=== PATIENT | female | born 1945 | race Caucasian/White ===

== ENCOUNTER 2018-09-25 06:22 | Inpatient (IN) | payer MEDICARE, SELFPAY ==
[2018-09-07 09:43] VITALS: BMI 25.9
[2018-09-25] VITALS (16 sets, daily range): BP systolic 88–136; BP diastolic 48–102; PULSE 76–99; RESP 10–20; TEMP 36.1–36.6; O2SAT 96–100; BMI 26.1
--- NOTE | 2018-09-25 | DI.RAD.S_ITS ---
PROCEDURE: XR LUMBAR SPINE 2-3V INDICATIONS: L2-3-4-5 TLIF TECHNIQUE: 2 intraoperative fluoroscopic views of the lumbar spine were acquired. COMPARISON: None. FINDINGS: Intraoperative fluoroscopic images of lumbar spine shows transpedicular fusion of L2-L5 vertebral bodies with intervertebral metallic spacer placement at L2-3 through L4-5 levels. IMPRESSION: Fluoroscopy guidance was provided intraoperatively for L2-L5 fusion. Dictated by: Erasmo Villeda M.D. on 09/25/2018 at 13:22 Approved by: Erasmo Villeda M.D. on 09/25/2018 at 13:28
[2018-09-25] MEDS: LACTATED RINGERS 1,000 ML 42 ML IV ×2 (07:00→10:10)
--- NOTE | 2018-09-25 07:25 | SUR.PREOP ---
PT REPORTS HAS MILD TREMOR IN RIGHT HAND, NOT OBSERVED BY RN. PT ALSO REPORTS HAS CHRONIC BURNING SENSTATION IN BOTH FEET.
[2018-09-25] MEDS: CLINDAMYCIN 900 MG/50 ML PIGGYBACK 50 MG IV ×2 (07:59→16:25)
--- NOTE | 2018-09-25 07:59 | PM.PREOP ---
Pre-operative Note Interval Note Pre-op Check: Yes History & Physical Reviewed by Physician, Yes Exam Performed and Yes History & Physical exam performed today by Physician Changes: No
--- NOTE | 2018-09-25 08:41 | SUR.OPER ---
Prone on spine table, head in foam head support, padded chest and pelvic supports, gel pad at knees, lower legs supported by pillows; nipples, genitalia and toes free of pressure, arms secured on foam padded arm boards at <90 degrees abduction. Tape over blanket at thigh secured to table.
[2018-09-25] MEDS: BUPIVACAINE 0.25% W/ EPI VIAL 50 ML INJ (09:03)
[2018-09-25] MEDS: BUPIVACAINE LIPOSOME 266 MG/20 ML VIAL INJ (09:03)
--- NOTE | 2018-09-25 09:04 | SUR.OPER ---
GLASSES IN LABELED CONTAINER TO PACU WITH PATIENT
--- NOTE | 2018-09-25 12:39 | PM.OP.1 ---
Operative Date/Time/Diagnoses Date of procedure: 09/25/18 Time of procedure: 08:39 Pre-op diagnosis: 1. L2-3, L3-4, L4-5 spondylolisthesis 2. Lumbar scoliosis 3. Lumbar spondylosis with radiculopathy Post-op diagnosis: same Procedure & Clinicians Procedure: 1. L2-3, L3-4, L4-5 Postero-lateral and posterior interbody fusion 2. L2-3, L3-4, L4-5 interbody cage placement. 3. L2-3, L3-4, L4-5 decompressive laminectomy with bilateral facetecomies 4. L2-3, L3-4, L4-5 Posterior segmental instrumentation 5. [place] of bone marrow from iliac crest 6. Utilization of microsurgical technique and operating microscope Same procedure as scheduled: Yes Indications: Patient has been having chronic back pain and worsening lumbar radiculopathy.Patient failed multiple conservative management with worsening pain weakness and numbness in her lower extremity. Patient has been having difficulty performing activity of daily living. After discussing risks benefits of treatment options, patient elected proceed with surgery. Surgeon: Arik Del Toro [employer] Vendor: Beth Zamudio Click Yes if Unassisted: No Anesthesia Type: General Operative Notes Closure Type: primary Specimen(s): none sent Implants & Drains: Globus Revolve screws, Rise cages Applied: catheter Estimated Blood Loss (mL): 200 Blood products transfused: none Procedure in detail: Patient was seen in the preoperative area. Risks and benefits of the surgery was discussed with the patient. Informed consent was obtained from the patient and placed in the chart. Surgical site was marked. Patient was taken to the operative room. General anesthesia was administered. Prophylactic antibiotic was given to the patient less than 30 min before the incision was made. Patient was placed into a prone position on the Tavo table. Patient's back was then prepped and draped in the sterile fashion. Time-out was performed at this time. Using AP and lateral C-arm imaging the interval between L2-3, L3-4, L4-5 was identified and marked on patient's back. A 3 inch incision 2 in from midline was made on the left side first. The fascia was incised in line with skin incision. Globus MARS retractors was placed inside the incision and docked onto the L2, L3, L4 lamina. Using microsurgical technique and operating microscope, a L2, L3, L4 laminectomy and L2-3, L3-4, L4-5 facetectomy was performed using a Kerrison rongeur. The disc space at L3-4, L4-5, L5-S1 was identified. And a total diskectomy was performed at L2-3, L3-4, L4-5 level. The endplates were decorticated using a rasp and shaver. The total diskectomy and decortication was performed at L2-3, L3-4, L4-5 level in order to to accomplish a L2-3, L3-4, L4-5 fusion. The local bone from the laminectomy and facetectomy was saved for local bone grafting. After the total diskectomy and decortication was completed, Globus viacell bone graft material was combined with local bone that was harvested earlier. At this time, a separate skin is incision was made over the iliac crest. A Jamshidi needle was inserted into the iliac crest through a separate skin incision. 5 cc of bone marrow aspiration was obtained through the separate skin incision using a Jamshidi needle from the iliac crest. The bone marrow aspiration was combined with local bone and the via cell bone grafting material. The bone grafting material was placed into the L2-3, L3-4, L4-5 interbody space along with three cages, one expandable cage at each level. The cages were expanded to their maximum height using the torque limiting screwdriver. At this time a mirror image incision was made on the right side. The fascia was incised in line with the skin incision. Globus MARS retractor was inserted and docked onto the L2-3, L3-4, L4-5 posterolateral gutter. Using the power drill, posterior-lateral decortication was performed at L2-3, L3-4, L4-5 level until bleeding cortical bone was identified. The remaining bone grafting material was placed into the L2-3, L3-4, L4-5 posterior lateral gutter he order to accomplish posterolateral fusion at the L2-3, L3-4, L4-5 levels. Using the double C-arm technique, pedicle screws were placed into the L2, L3, L4, L5 pedicles bilaterally. This was done by placing the Jamshidi needle into the pedicles, then placing the guidewires over the Jamshidi needle, and finally placing the cannulated screws over the guidewires bilaterally. After the pedicle screws were placed, 2 titanium rods was locked into the heads of the pedicle screws using locking caps and torque limiting screwdriver. Total 8 pedicles screws were placed. After all the hardware was placed, and confirmed with AP and lateral C-arm imaging, the wound was then irrigated with sterile normal saline and packed with Ray-Ismael gauze for 3 min to accomplish hemostasis. After the gauze was removed the deep fascia was closed with #1 Vicryl suture. The subcutaneous layer was closed with 2-0 Vicryl. The skin was closed with skin alis. Patient tolerated the procedure well. There were no complications. Complications: none Condition: stable Disposition: PACU Plan for aftercare: Admit to inpatient hospital
--- NOTE | 2018-09-25 13:22 | SUR.PHASEI ---
upon admit to PACU, IT WAS NOTED THAT PT HAS A SMALL HEMATOMA -SIZE OF NICKEL - ON INNER RIGHT WRIST, PRESSURE APPLIED, NO BLEEDING NOTED, WILL CONTINUE TO MONITOR AND OBSERVE, (CLOTH CUTTER STATES IT IS FROM NEURO MONITER NEEDLE)
--- NOTE | 2018-09-25 15:58 | PC.NURSE ---
Post-op: Late entry Arrived to room 205 at 1350. Quite drowsy but awakens easily to voice/touch. Denied much pain. Dressings to mid low back C/D/I. CMS+, PP+. Denied N/V, given ice chips & water. Vitals stable, BP's trending up from systolic in the high 80's to systolic in the 100's. Sats on 2L O2 in the mid 90's. Fischer to gravity, urine clear yellow. IVF per orders, site in L hand WNL. Oriented to room and call light, encouraged to call with needs. Fall precautions in place per nurse direction.
[2018-09-25] MEDS: SODIUM CHLORIDE 0.9% 1,000 ML 100 ML IV (16:07)
[2018-09-25] MEDS: HYDROMORPHONE 1 MG INJ 0.5 MG IV ×2 (16:21→19:02)
[2018-09-25] MEDS: hydrOXYzine pamoate 25 MG CAPSULE PO ×2 (17:54→22:19)
[2018-09-25] MEDS: OXYCODONE IR 5 MG TABLET 10 MG PO (22:17)
[2018-09-25] MEDS: DOCUSATE 100 MG CAPSULE PO (22:19)
[2018-09-25] MEDS: ATORVASTATIN 20 MG TABLET 40 MG PO (22:20)
[2018-09-25] MEDS: SENNOSIDES 8.6 MG TABLET 17.2 MG PO (22:20)
[2018-09-25] MEDS: LATANOPROST 0.005% OPHTH 2.5 ML 1 DROPS EYE-BOTH (22:20)
[2018-09-25] MEDS: ACETAMINOPHEN 325 MG TABLET 650 MG PO (22:21)
[2018-09-26] MEDS: CLINDAMYCIN 900 MG/50 ML PIGGYBACK 50 MG IV (01:00)
--- NOTE | 2018-09-26 01:17 | PC.NURSE ---
millie note Pt reports increased pain to left medial knee post op compared to pre-op. Pt says that the physician said that due to the procedure, this would be the case. Medicated several times with IV dilaudid and po vistaril. Pt tolerated full liquid diet. O2 decreased from 3 to 2L for sats of 100%.
[2018-09-26] MEDS: SODIUM CHLORIDE 0.9% 1,000 ML 100 ML IV (01:55)
--- NOTE | 2018-09-26 02:29 | PC.NURSE ---
Soda Room Operator Note: 0020: Awake, assisted to log-roll to lt side. Dressing to lower back 2/3 saturated with serosanguinous drainage. IV in place in lt wrist with NS infusing at 100cc/hr. Fischer catheter patent, urine is clear jethro.
[2018-09-26 05:40] VITALS: BP 107/58; PULSE 85; RESP 18; TEMP 36.4; O2SAT 100
[2018-09-26] MEDS: OXYCODONE IR 5 MG TABLET 10 MG PO ×4 (05:59→22:20)
[2018-09-26] MEDS: hydrOXYzine pamoate 25 MG CAPSULE PO ×3 (05:59→19:12)
[2018-09-26 06:43] LABS: Hematocrit 28.4 % (36-46); Hemoglobin 9.6 g/dL (12.0-16.0)
[2018-09-26 07:40] VITALS: BP 102/58; PULSE 88; RESP 16; TEMP 36.6; O2SAT 100
--- NOTE | 2018-09-26 07:45 | PM.PNPO.1 ---
Subjective Date Patient Seen: 09/26/18 Time Patient Seen: 07:45 Interval history: POD #1 status post L2-[address] Del Toro. Patient's pain is well controlled today with oxycodone and Vistaril. Her dressing last night was saturated with serosanguineous fluid, it was reinforced with ABDs. Patient has not been up with physical therapy. Exam Vital Signs (past 8 hours): - 09/26/18 05:40 Temperature 97.5 F L Pulse Rate 85 Respiratory Rate 18 Blood Pressure 107/58 L Pulse Oximetry 100 Oxygen Delivery Method Room Air Oxygen Flow Rate 2 Narrative Exam Narrative: Patient lying in bed in no acute distress. She is alert and oriented x3. Dressing on back is saturated with serosanguineous fluid. Nursing will change this morning. Calves are soft, compressible, nontender bilaterally. Sensation intact to light touch throughout bilateral lower extremities. She is able to actively dorsiflex plantar flex. Objective Labs Result Diagrams: 09/26/18 06:28 Labs: Laboratory Results - last 24 hr 09/26/18 06:28 Hgb 9.6 L Hct 28.4 L Assessment & Plan Post-op Postoperative Procedures Operation Date: 09/25/18 07:45 Actual Procedures Side Surgeon p L2-3,L3-4,L4-5 TLIF w/Posterior Instru. Not Applicable Arik Del Toro MD POD #1 status post L2-[address] Del Toro. Dressing change this morning per nursing. We will re-evaluate dressing status this afternoon. She will get up with physical therapy today. When she is more mobile MELIDA Fischer. Plan to discharge in next 1-2 days once mobilizing safely and pain adequately controlled.
[2018-09-26 09:05] VITALS: O2SAT 99
--- NOTE | 2018-09-26 09:30 | PT.IIE ---
Current Diagnoses Spondylolisthesis, lumbar region (09/25/18) Other spondylosis with radiculopathy, lumbar region (09/25/18) Spinal stenosis, lumbar region with neurogenic claudication (09/25/18) Surgery Performed Operation Date: 09/25/18 07:45 Actual Procedures p L2-3,L3-4,L4-5 TLIF w/Posterior Instru.(Not Applicable) - Arik Del Toro MD Surgical History (Last Updated 09/07/18 @ 10:21 by Paula Young RN) H/O hysterectomy with unilateral oophorectomy (Acute) Hx of appendectomy (Acute) Hx of laminectomy (Acute) Status post bilateral cataract extraction (Acute) Medical History (Last Updated 09/07/18 @ 10:21 by Paula Young RN) Anxiety (Acute) Arthritis (Acute) Asthma (Acute) BCC (basal cell carcinoma) (Acute) Burning pain (Acute) Glaucoma (Acute) H/O: hysterectomy (Acute) HTN (hypertension) (Acute) Hyperlipidemia (Acute) Mitral valve prolapse (Acute) TRACY on CPAP (Acute) Pneumonia (Acute) SOB (shortness of breath) on exertion (Acute) Scoliosis (Acute) TIA (transient ischemic attack) (Acute) Thin skin (Acute) Physical Therapy Inpatient Evaluation/Re-Eval M1 PT/OT-IP Prior Functional Status Start: 09/26/18 11:01 Freq: NEEDED Status: Active Protocol: Document 09/26/18 10:58 PJM (Rec: 09/26/18 11:15 PJM [id number]) Medical Review Prior Functional Status Medical History Reviewed Yes Diet/Fluid Consistency Regular Communication WNL Mobility and Gait Pt ambulated without a device. Activities of Daily Living and IADL's Pt independent with all self care, all IADLS and all the driving. Pt's has mild dementia and no longer drives. Prior Functional Level (Other details) Pt's ambulates without a device and can provide some assist if verbally cued. Social History Household Members spouse Living Arrangements House Number of Floors (Floors) One Floor Number of Stairs To Enter/Railing? 2 with railing Home Environment High Toilet Walk in Shower Home Equipment Front Wheel Walker Grab Bars Near Toilet Grab Bars In Shower Employment Status Retired Additional Social History Comment pt's son, who is RN, will stay with pt/ for 1-2 weeks , dtr also lives nearby M1 PT/OT-IP Prior Functional Status Start: 09/26/18 11:57 Freq: NEEDED Status: Active Protocol: Document 09/26/18 09:30 AB (Rec: 09/26/18 12:24 AB [id number]) Medical Review Prior Functional Status Medical History Reviewed Yes Diet/Fluid Consistency Regular Communication able to make needs known Mobility and Gait pt stated that she is independent with all mobilities and ambulation without AD but can only walk ~ 1/2 block at a time and has to sit Activities of Daily Living and IADL's Pt independent with all self care, all IADLS and all the driving. Pt's has mild dementia and no longer drives. Social History Household Members spouse Living Arrangements House Number of Floors (Floors) One Floor Number of Stairs To Enter/Railing? 2 steps to enter with bilateral rails Home Environment Standard Height Toilet Walk in Shower Home Equipment Front Wheel Walker Hand Held Shower Grab Bars Near Toilet Grab Bars In Shower Additional Social History Comment stated that her son will stay to assist her for ~ 1 week stated that spouse has cognitive issues/confusion but will be able to assist at home when directed M2 PT-IP Current Condition Start: 09/26/18 11:57 Freq: NEEDED Status: Active Protocol: Document 09/26/18 09:30 AB (Rec: 09/26/18 12:24 AB [id number]) Physical Therapy Current Condition Current Condition Evaluation Date 09/26/18 Treatment Diagnosis L2-5 posterior fusion and laminectomy Onset Date 09/25/18 Precautions Lumbar Precautions Log Roll No Twisting Limit Bending Lifting Restriction of 10 lbs Gait Belt above Incisional Area M3 PT-IP Subjective Start: 09/26/18 11:57 Freq: NEEDED Status: Active Protocol: Document 09/26/18 09:30 AB (Rec: 09/26/18 12:24 AB [id number]) Subjective Physical Therapy Visit Type Type Initial Evaluation Visit Start Time 09:30 Visit Stop Time 10:25 Total Visit Minutes 55 Number of LATEX DIPPER Visits 0 Physical Therapy Visit Comments Patient Comments pt agreeable to do PT Therapy Pain Assessment Pain When Pain Assessed At Rest Pain Present Pain Present Pain Reported Location Left Knee Intensity 8 Scale Used stated from her piriformis Description Shooting Lower Back Intensity 7 Pain Management Techniques Timing of Activity with Medications M4 PT-IP Mobility and Gait Start: 09/26/18 11:57 Freq: NEEDED Status: Active Protocol: Document 09/26/18 09:30 AB (Rec: 09/26/18 12:24 AB [id number]) PT-Bed Mobility Assessment Rolling Type of Rolling Log Rolling Level of Assist Minimal Assistance 1 Person Assistance Supine to Sit Supine to Sit Minimal Assistance 1 Person Assistance Bedrails Sit to Supine Sit to Supine Minimal Assistance 1 Person Assistance Bedrails PT-Transfer Assessment Sit to and From Stand Sit to and from Stand Moderate Assistance 1 Person Assistance Use of Upper Extremities Equipment Transfer Assistive Device Gait Belt Front Wheeled Walker Orthotic/Prosthetic Devices or Brace: No Transfers Transfer Destination Chair Transfer Technique pt ambulated to the chair using FWW Transfer Ability Level of Assist Minimal Assistance Moderate Assistance Use of Upper Extremities Comments Mobility Comments pt stated that she use her night stand to assist her with bed mobility. BP in supine 102/56 OK 87 O2 sat 99% pt sat on EOB and c/o dizziness and blurry vision but resolved after a few minutes of rest, BP: 118/69. pt completed sit to stand mod A and was able to stand for ~ 20 sec. BP in standin/ 69. pt ambulated to the chair using FWW. BP sitting on chair after ambulation: 116/53 Gait Assessment Gait Gait Assistance Required: Minimum Assistance Moderate Assistance 1 Person Assist Distance (Feet) 10 Able to Maintain Weight Bearing Status Yes During Gait Assistive Devices Assistive Device Gait Belt Front Wheeled Walker Orthotic/Prosthetic Devices or Brace: No Gait Deviations General Gait Pattern Antalgic Decreased Stride Length Decreased Feet Clearance Factors Limiting Gait Function Factors Limiting Gait Function Decreased Activity Tolerance Decreased Strength Pain Poor Balance Poor Safety Awareness Comments Gait Comments pt with slight L knee buckling requiring mod to max A to stabilize during standing and ambulation. PT-Balance Assessment Sitting Balance and Reactions Static Sitting Balance Ability Good Dynamic Sitting Balance Ability Good Standing Balance and Reactions Static Standing Balance Ability Fair Dynamic Standing Balance Ability Poor Device Used FWW M5 PT-IP Objective Assessments Start: 09/26/18 11:57 Freq: NEEDED Status: Active Protocol: Document 09/26/18 09:30 AB (Rec: 09/26/18 12:24 AB [id number]) Orientation Orientation/Cognition Level of Alertness Alert Orientation Name Age Birthday Month Date Year Day of Week Place Situation Gross Range of Motion Lower Extremity ROM Assessment Within Functional Limits Strength Lower Extremity Strength Assessment Bilaterally Impaired Comments Strength Comments BLE weakness L>R RLE: 4-/5 LLE: 3+/5 Coordination Assessment Gross Coordination Gross Coordination WNL M6 PT-IP Treatment Start: 09/26/18 11:57 Freq: NEEDED Status: Active Protocol: Document 09/26/18 09:30 AB (Rec: 09/26/18 12:24 AB [id number]) Physical Therapy Treatment Education Education Provided Precautions Weight Bearing Status Post-Op Packet Safety M7 PT-IP Assessment and Plan Start: 09/26/18 11:57 Freq: NEEDED Status: Active Protocol: Document 09/26/18 09:30 AB (Rec: 09/26/18 12:24 AB [id number]) PT Summary Assessment and Plan Potential Rehabilitation Potential Fair Status of Condition at Evaluation Evolving Summary Impairments Pain ROM Strength Balance Coordination Sensation Tone Cognition Bed Mobility Transfers Gait Activity Tolerance Assessment Summary pt requiring one person mod to max A with mobility with (+) L knee buckling during ambulation requiring mod/max A to stabilize. d/c plan depending on progress and assistance at home but at this time may require SNF. will continue to assess. Goals Bed Mobility Goal Standby Assistance Transfer Goal Standby Assistance Front Wheeled Walker Gait Goal Standby Assistance Front Wheel Walker Gait Distance 150 Other Goals up/down 2 steps with bilateral rails Days to Meet Goals 5 Frequency of Treatment Frequency Of Treatment Twice a Day Treatment Plan Physical Therapy Treatment Plan Bed Mobility Training Transfer Training Gait Training Therapeutic Exercise Balance Retraining Post Op Education Discharge Planning Hot or Cold Pack Neuromuscular Re-ed Coordination Retraining Manual Therapy Recommendations To Nursing Amount of Assist Needed 1 Person Assist Discharge Recommendations PT Discharge Recommendations Home with 20/06 Assist Home Health SNF Rehab
[2018-09-26] MEDS: HYDROMORPHONE 1 MG INJ 0.5 MG IV (09:57)
--- NOTE | 2018-09-26 10:58 | OT.IP.EVAL ---
Current Diagnoses Spondylolisthesis, lumbar region (09/25/18) Other spondylosis with radiculopathy, lumbar region (09/25/18) Spinal stenosis, lumbar region with neurogenic claudication (09/25/18) Surgery Performed Operation Date: 09/25/18 07:45 Actual Procedures p L2-3,L3-4,L4-5 TLIF w/Posterior Instru.(Not Applicable) - Arik Del Toro MD Past Medical History (Last Updated 09/07/18 @ 10:21 by Paula Young RN) Anxiety (Acute) Arthritis (Acute) Asthma (Acute) BCC (basal cell carcinoma) (Acute) Burning pain (Acute) Glaucoma (Acute) H/O: hysterectomy (Acute) HTN (hypertension) (Acute) Hyperlipidemia (Acute) Mitral valve prolapse (Acute) TRACY on CPAP (Acute) Pneumonia (Acute) SOB (shortness of breath) on exertion (Acute) Scoliosis (Acute) TIA (transient ischemic attack) (Acute) Thin skin (Acute) Surgical History (Last Updated 09/07/18 @ 10:21 by Paula Young RN) H/O hysterectomy with unilateral oophorectomy (Acute) Hx of appendectomy (Acute) Hx of laminectomy (Acute) Status post bilateral cataract extraction (Acute) Occupational Therapy Inpatient Evaluation/Re-Eval M1 PT/OT-IP Prior Functional Status Start: 09/26/18 11:01 Freq: NEEDED Status: Active Protocol: Document 09/26/18 10:58 PJM (Rec: 09/26/18 11:15 PJM [id number]) Medical Review Prior Functional Status Medical History Reviewed Yes Diet/Fluid Consistency Regular Communication WNL Mobility and Gait Pt ambulated without a device. Activities of Daily Living and IADL's Pt independent with all self care, all IADLS and all the driving. Pt's has mild dementia and no longer drives. Prior Functional Level (Other details) Pt's ambulates without a device and can provide some assist if verbally cued. Social History Household Members spouse Living Arrangements House Number of Floors (Floors) One Floor Number of Stairs To Enter/Railing? 2 with railing Home Environment High Toilet Walk in Shower Home Equipment Front Wheel Walker Grab Bars Near Toilet Grab Bars In Shower Employment Status Retired Additional Social History Comment pt's son, who is RN, will stay with pt/ for 1-2 weeks , dtr also lives nearby M2 OT-IP Current Condition Start: 09/26/18 11:01 Freq: Status: Active Protocol: Document 09/26/18 10:58 PJM (Rec: 09/26/18 11:15 PJM [id number]) Occupational Therapy Current Condition Current Condition Evaluation Date 09/26/18 Treatment Diagnosis decreased self care, functional mobility s/p L3-5 Lumbar fusion Post Operative Precautions Lumbar Precautions Log Roll No Twisting Limit Bending Lifting Restriction of 10 lbs Gait Belt above Incisional Area M3 OT- IP Subjective and Pain Start: 09/26/18 11:01 Freq: Status: Active Protocol: Document 09/26/18 10:58 PJM (Rec: 09/26/18 11:15 PJM [id number]) OT- Subjective Occupational Therapy Visit Type Type Initial Evaluation Visit Start Time 10:25 Visit Stop Time 10:58 Occupational Therapy Visit Comments Patient/Caregiver Goals to go home, resume independence with less back pain OT Pain Assessment Pain When Pain Assessed After Treatment Pain Present Pain Present Pain Reported Location Lower Back Intensity 7 Description Aching Acute Pain Behaviors Facial Grimacing Guarding Management Techniques Re-positioning Timing of Activity with Medications M4 OT- IP ADL's Start: 09/26/18 11:01 Freq: Status: Active Protocol: Document 09/26/18 10:58 PJM (Rec: 09/26/18 11:15 PJM [id number]) OT [id number] General Evaluation Self-Feeding Ability Independent OT ADL-Grooming General Evaluation Grooming Ability Standby Assistance Areas Needing Assistance Retrieving/Set-up of Grooming Items Face Washing Comments OT Grooming Comments in bed or chair OT ADL-Oral Care General Eval Oral Care Ability Standby Assistance Areas of Assistance Retrieving/Set-Up of Items Devices Oral Care Devices Toothbrush Comments Oral Care Comments in bed or chair OT ADL-Dressing General Eval Upper Body Dressing Ability Standby Assistance Lower Body Dressing Ability Maximum Assistance Areas Needing Assistance Socks Assistive Devices Dressing Assistive Devices Long Handled Shoe Horn Career Development Coordinator/Teacher Sock Aid Comments OT Dressing Comments Began education re: adaptive equipt for LB dressing. Pt has documentation writer and can borrow long shoe horn from . She will have son order hard sock aid on line. OT ADL-Toileting General Evaluation Toileting Ability Maximum Assistance Areas Needing Assistance Empty Catheter or Colostomy Comments OT Toileting Comments to be assessed; pt still has rincon OT ADL-Bathing Comments OT Bathing Comments to be assessed as activity toelrance improves M5 OT- IP IADL's Start: 09/26/18 11:01 Freq: Status: Active Protocol: Document 09/26/18 10:58 PJM (Rec: 09/26/18 11:15 PJM [id number]) OT-Instrumental Activities of Daily Living Deficits IADL Deficits Identified Deficits Home Safety Awareness Awareness of Need for Assistance at Home Good Awareness Ability to Problem Solve Emergency Able to Problem Solve Situations Medication Management Medication Management No Deficits Identified Money Management Money Management No Deficits Identified Meal Preparation Meal Preparation Caregiver Provides Assist Meal Preparation Comments family to assist until pt able Senior Java Programmer Analyst Senior Java Programmer Analyst Caregiver Provides Assist Senior Java Programmer Analyst Comments family to assist until pt able Driving Driving Caregiver Provides Assist Driving Comments family to assist until pt able M6 OT- IP Functional Cognition Start: 09/26/18 11:01 Freq: Status: Active Protocol: Document 09/26/18 10:58 PJM (Rec: 09/26/18 11:15 PJ [id number]) Cognitive Factors Limiting Selfcare Function Cognitive Ability Level of Alertness Alert Patient Orientation Name Age Birthday Month Date Year Day of Week Place Situation Attention Span Ability Capable of Focused Attention Capable of Sustained Attention Ability to Follow Commands Able to Follow One Step Commands Memory Description No Deficits Noted Safety Awareness No Deficits Noted Problem Solving Ability No deficits Noted Cognitive Comments Cognitive Assessment Comments Cognition appears WNL. OT- Vision and Hearing OT- Hearing Assessment OT- Hearing Assessment WFL OT- Vision Assessment Vision History Glaucoma Visual Acuity WFL Vision Assessment Comments Wears glasses for distance, not for reading M7 OT- IP Mobility and Balance Start: 09/26/18 11:01 Freq: Status: Active Protocol: Document 09/26/18 10:58 PJM (Rec: 09/26/18 11:15 [facility] [id number]) OT- Bed Mobility Assessment Rolling Type of Rolling Roll to Right Level of Assistance Contact Guard Assistance 1 Person Assistance Sit to Supine Sit to Supine Assist Contact Guard Assistance 1 Person Assistance Scooting Scooting to Edge of Bed Standby Assistance 1 Person Assistance OT-Transfer Assessment Sit to and From Stand Sit to and from Stand Contact Guard Assistance 1 Person Assistance Transfers Transfer Ability Contact Guard Assistance 1 Person Assistance Technique Transfer Destination Bed Transfer Technique Stand Step Pivot Devices Transfer Assistive Devices Gait Belt Front Wheeled Walker OT- Gait Assessment Gait Gait Assistance Required: Contact Guard Assist Distance (Feet) 12 Assistive Devices Assistive Device Gait Belt Front Wheeled Walker Comments Gait Ability Comments mildly unsteady OT- Balance Assessment Sitting Balance and Reactions Static Sitting Balance Ability Good Standing Balance and Reactions Static Standing Balance Ability Good M8 OT- IP Objective Assessments Start: 09/26/18 11:01 Freq: Status: Active Protocol: Document 09/26/18 10:58 PJM (Rec: 09/26/18 11:15 PJM [id number]) OT Gross Range of Motion Upper Extremity Range of Motion Assessment Within Functional Limits OT Strength Upper Extremity Strength Assessment Within Functional Limits Hand Customer Success Director Strength Hand Dominance Right OT- Coordination Assessment Comments Coordination Comments BUE WFL OT-Muscle Tone Assessment Muscle Tone WNL Yes OT Sensation Assessment Comments Summary Comments BUE WNL Edema Edema Absent M9 OT- IP Assessment and Plan Start: 09/26/18 11:01 Freq: Status: Active Protocol: Document 09/26/18 10:58 PJM (Rec: 09/26/18 11:15 PJM [id number]) OT Summary Assessment and Plan Potential Rehabilitation Potential Good Analytic Complexity at Evaluation Low Summary OT Impairments Pain Balance Functional Mobility Grooming Dressing Toileting Bathing Toilet Transfers Shower Transfers Assessment Summary Low complexity OT assessment completed with emphasis on self are skills within lumbar spine precautions. Pt currently has performance deficits in all functional mobility/transfers, standing grooming, lower body dressing, bathing, toileting. Began education re: precautions, chair selection, body mechanics, lower body dressing with equipt. Anticipate pt will be able to d/c home with 24 hr family assist when medically stable and clears P. T. Goals Grooming Goal Independent Dressing Goal Independent Long Handled Shoe Horn Career Development Coordinator/Teacher Sock Aid Toileting Goal Independent Bathing Goal Standby Assistance Toilet Transfer Goal Independent Shower Transfer Goal Standby Assistance Patient/Caregiver Education Goal Demonstrate Post-Op Precautions Demonstrate Energy Conservation and Pacing Caregiver Independent Assisting Patient OT-Other Goals Grooming to be done standing with good body mechanics. Days to Meet Goals 3 Frequency of Treatment Frequency Of Treatment Once a Day Treatment Plan OT Treatment Plan ADL Training Functional Mobility Patient/Family Education Discharge Planning Discharge Recommendations OT Discharge Recommendations Home with 24/7 Assist Home Equipment Needs shower seat?, pt to obtain hard sock aid and long bath sponge
[2018-09-26] MEDS: DOCUSATE 100 MG CAPSULE PO ×2 (11:09→19:11)
[2018-09-26 11:20] VITALS: BP 106/53; PULSE 85; RESP 14; TEMP 36.7; O2SAT 100
--- NOTE | 2018-09-26 11:23 | CM.DANOTE ---
Addendum entered by Talia Gautam LPN 09/26/18 12:06: Introduced self and role. Pt is found in bed, resting. Says she worked with PT and OT for first time this morning. Pt is a 72 year old female who admitted yesterday for a planned spinal surgery/TLIF. Surgeon: Dr. Katey Rodríguez: ROHIT DAVIS She identifies her plan at this time as home with family support. P: DCP team will follow as POC unfolds to assist prn with d/c issues and options. Original Note: Discharge Planning/Care Management DCP: assessment: case received, EMR reviewed and went to room to meet with pt. CM Discharge Assessment Start: 09/26/18 11:22 Freq: Status: Active Protocol: Document 09/26/18 11:22 ITV (Rec: 09/26/18 11:23 ITV [id number]) Discharge Planning Assessment Advance Directives? Yes Advance Directives on File Yes History Provided By Patient Family Member Prior Living Arrangements House Household Members spouse Whiteboard Updated in Patient Room with Yes name and ext. # of Med Care Manager Review Status In Process Next Review Type Continued Stay Review Pre-Anesthesia Assessment Start: 09/07/18 09:43 Freq: Status: Active Protocol: Document 09/07/18 09:43 CAB (Rec: 09/07/18 10:35 CAB [id number]) Pre-Anesthesia Assessment Patient Also Known As Hartley (AKA) Patient Information Reviewed Via Phone Assessment Assessment Completed With Patient Lab Results BMP/CMP CBC EKG Comment Labs and EKG obtained as inpt at [facility] Primary Care Provider Calvin Vergara Seen Specialist in Last 12 Months Yes Specialist Seen Irrigator Emergency Orthopedist Other Comment [facility] admit 08/14/18 for TIA, PCP f/u visit [facility] Primary Language Swedish Superintendent Factory Required No Height 172.72 cm Weight 77.564 kg Body Mass Index (BMI) 25.9 Hearing Ability Normal Visual Assist Glasses Dentition Type Teeth, Natural Present Barriers to Learning None Comment LOVELOCK only with seasonal allergies, causing swelling in ears Hx Anesthesia Reactions Yes: Nausea/vomiting w/ hysterectomy 80's, none since Hx Family Anesthesia Reaction No Hx Malignant Hyperthermia No Hx Blood Transfusions Yes: 1979 Hx Blood Transfusion Reaction No Anesthesia Review Requested No Sap Integration Architect No alcohol intake current Alcohol Intake Frequency Other: Occasional Smoking Status Never smoker Substance Use Type does not use Pain Present Pain Reported Musculoskeletal Symptoms Deformity Difficulty Walking Muscle Weakness Radiating Pain into Limb History of Falling (Recent or History of No ) Patient is completely paralyzed or No completely immobile Mental Status Oriented to own ability Is patient on oxygen? No Does patient have CONTRERAS/SOB Yes Hx Sleep Apnea Yes CPAP/BIPAP use prescribed and used routinely Will Bring CPAP/BIPAP DOS Yes Currently Taking a Beta Saji Yes: Metoprolol Can You Climb a Flight of Stairs Without No SOB Hx Chest Pain Yes: On occasion with exertion /upstairs, improves w/rest x 20yrs Hx SOB Yes Hx Syncope or Dizziness No Anti-Coagulant Therapy Yes: 81mg aspirin daily-pt will check with PCP if to hold prior Has a Irrigator No Cardiac Testing Yes: ECHO 08/15/18, Carotid US 08/14/18, Stress 09/18/18 Hx Pacemaker/ICD No Pacemaker Rep Required? No Cardiac Clearance Received Not Applicable Comment [facility] to chart Diet Type At Home Regular dysphagia No Genitourinary Symptoms Change in Urinary Stream Difficulty Urinating Urinary Catheter Present No Hx Urinary Self Catheterization No Diabetes No HgbA1C 5.7 Date 08/14/18 Patient No Lactating No Hx Drug Resistant Organism No Presence of External or Internal Medical Yes Devices Comment bilateral eye lens, CPAP, left knee brace Have you traveled outside the [facility] States in the last 30 days? Comment Traveled to [place], [facility] July 25, 2018 Marital Status Lives With spouse Prior Living Arrangements House Number of Floors (Floors) One Floor Number of Stairs To Enter/Railing? 2 steps, railing Support System Child/Children Spouse Does the Patient Have Assistance After Yes Surgery Patient Discharge Plan Description Return Home Comment Pt not advised on length of stay. Children will stay w/pt to assist w/care Feels Safe in Current Environment Yes Been Physically Hurt or Threatened By a No Person in Current Environment Do you have thoughts of harming yourself None or others? Are you currently considering suicide? No Do you have a plan to hurt yourself or No Plan others? Do You Have Any Spiritual Beliefs That No May Affect Your HC Choices? Do You Have Any Cultural Practices That No May Affect Your HC Choices? Spiritual Referral None Who Can We Speak to About Patient's Care Family, friends Identifying Code for Release of Patient Declines to issue Information Health Care Proxy/Next of Kin Cesario () Health Care Proxy Emergency Contact Name Cesario () Emergency Contact Advance Directives? Yes Advance Directives on File Yes Requested Patient Bring Advanced No Directives DOS Power of Wire Walker Yes Power of Wire Walker Name Cesario () Power of Wire Walker PAC Instructions Bring CPAP/BIPAP Durable medical equipment Medications to take/avoid Nasal antibiotic No ETOH/petroleum product on skin DOS NPO Post-op transportation Pre-surgical wash Sturdy shoes/comfortable clothes Do not bring valuables and remove jewelry Discharge Planning/Care Management CM Discharge Assessment Start: 09/26/18 11:22 Freq: Status: Active Protocol: Document 09/26/18 11:22 ITV (Rec: 09/26/18 11:23 ITV [email or web address]) Discharge Planning Assessment Advance Directives? Yes Advance Directives on File Yes History Provided By Patient Family Member Prior Living Arrangements House Household Members spouse Whiteboard Updated in Patient Room with Yes name and ext. # of Med Care Manager Review Status In Process Next Review Type Continued Stay Review Pre-Anesthesia Assessment Start: 09/07/18 09:43 Freq: Status: Active Protocol: Document 09/07/18 09:43 CAB (Rec: 09/07/18 10:35 CAB [id number]) Pre-Anesthesia Assessment Patient Also Known As Hartley (AKA) Patient Information Reviewed Via Phone Assessment Assessment Completed With Patient Lab Results BMP/CMP CBC EKG Comment Labs and EKG obtained as inpt at [facility] Primary Care Provider Calvin Vergara Seen Specialist in Last 12 Months Yes Specialist Seen Irrigator Emergency Orthopedist Other Comment [facility] admit 08/14/18 for TIA, PCP f/u [facility] Primary Language Swedish Superintendent Factory Required No Height 172.72 cm Weight 77.564 kg Body Mass Index (BMI) 25.9 Hearing Ability Normal Visual Assist Glasses Dentition Type Teeth, Natural Present Barriers to Learning None Comment LOVELOCK only with seasonal allergies, causing swelling in ears Hx Anesthesia Reactions Yes: Nausea/vomiting w/ hysterectomy 80's, none since Hx Family Anesthesia Reaction No Hx Malignant Hyperthermia No Hx Blood Transfusions Yes: 1979 Hx Blood Transfusion Reaction No Anesthesia Review Requested No Sap Integration Architect No alcohol intake current Alcohol Intake Frequency Other: Occasional Smoking Status Never smoker Substance Use Type does not use Pain Present Pain Reported Musculoskeletal Symptoms Deformity Difficulty Walking Muscle Weakness Radiating Pain into Limb History of Falling (Recent or History of No ) Patient is completely paralyzed or No completely immobile Mental Status Oriented to own ability Is patient on oxygen? No Does patient have CONTRERAS/SOB Yes Hx Sleep Apnea Yes CPAP/BIPAP use prescribed and used routinely Will Bring CPAP/BIPAP DOS Yes Currently Taking a Beta Saji Yes: Metoprolol Can You Climb a Flight of Stairs Without No SOB Hx Chest Pain Yes: On occasion with exertion /upstairs, improves w/rest x 20yrs Hx SOB Yes Hx Syncope or Dizziness No Anti-Coagulant Therapy Yes: 81mg aspirin daily-pt will check with PCP if to hold prior Has a Irrigator No Cardiac Testing Yes: ECHO 08/15/18, Carotid US 08/14/18, Stress 09/18/18 Hx Pacemaker/ICD No Pacemaker Rep Required? No Cardiac Clearance Received Not Applicable Comment Records to [facility] recs to be scanned to chart Diet Type At Home Regular dysphagia No Genitourinary Symptoms Change in Urinary Stream Difficulty Urinating Urinary Catheter Present No Hx Urinary Self Catheterization No Diabetes No HgbA1C 5.7 Date 08/14/18 Patient No Lactating No Hx Drug Resistant Organism No Presence of External or Internal Medical Yes Devices Comment bilateral eye lens, CPAP, left knee brace Have you traveled outside the [facility] in the last 30 days? Comment Traveled to [place], [facility] July 25, 2018 Marital Status Lives With spouse Prior Living Arrangements House Number of Floors (Floors) One Floor Number of Stairs To Enter/Railing? 2 steps, railing Support System Child/Children Spouse Does the Patient Have Assistance After Yes Surgery Patient Discharge Plan Description Return Home Comment Pt not advised on length of stay. Children will stay w/pt to assist w/care Feels Safe in Current Environment Yes Been Physically Hurt or Threatened By a No Person in Current Environment Do you have thoughts of harming yourself None or others? Are you currently considering suicide? No Do you have a plan to hurt yourself or No Plan others? Do You Have Any Spiritual Beliefs That No May Affect Your HC Choices? Do You Have Any Cultural Practices That No May Affect Your HC Choices? Spiritual Referral None Who Can We Speak to About Patient's Care Family, friends Identifying Code for Release of Patient Declines to issue Information Health Care Proxy/Next of Kin Cesario () Health Care Proxy Emergency Contact Name Cesario () Emergency Contact Advance Directives? Yes Advance Directives on File Yes Requested Patient Bring Advanced No Directives DOS Power of Wire Walker Yes Power of Wire Walker Name Cesario () Power of Wire Walker PAC Instructions Bring CPAP/BIPAP Durable medical equipment Medications to take/avoid Nasal antibiotic No ETOH/petroleum product on skin DOS NPO Post-op transportation Pre-surgical wash Sturdy shoes/comfortable clothes Do not bring valuables and remove jewelry
[2018-09-26] MEDS: ACETAMINOPHEN 325 MG TABLET 650 MG PO (12:26)
--- NOTE | 2018-09-26 14:30 | PT.IPTN ---
Current Diagnoses Spondylolisthesis, lumbar region (09/25/18) Other spondylosis with radiculopathy, lumbar region (09/25/18) Spinal stenosis, lumbar region with neurogenic claudication (09/25/18) Surgery Performed Operation Date: 09/25/18 07:45 Actual Procedures p L2-3,L3-4,L4-5 TLIF w/Posterior Instru.(Not Applicable) - Arik Del Toro MD Physical Therapy Treatment Note M2 PT-IP Current Condition Start: 09/26/18 11:57 Freq: NEEDED Status: Active Protocol: Document 09/26/18 09:30 AB (Rec: 09/26/18 12:24 AB [id number]) Physical Therapy Current Condition Current Condition Evaluation Date 09/26/18 Treatment Diagnosis L2-5 posterior fusion and laminectomy Onset Date 09/25/18 Precautions Lumbar Precautions Log Roll No Twisting Limit Bending Lifting Restriction of 10 lbs Gait Belt above Incisional Area M3 PT-IP Subjective Start: 09/26/18 11:57 Freq: NEEDED Status: Active Protocol: Document 09/26/18 14:30 AB (Rec: 09/26/18 16:11 AB [id number]) Subjective Physical Therapy Visit Type Type Treatment Note Visit Start Time 14:30 Visit Stop Time 15:10 Total Visit Minutes 40 Number of SHIPPING HAND Visits 0 Physical Therapy Visit Comments Patient Comments pt agreeable to do PT Therapy Pain Assessment Pain When Pain Assessed At Rest Pain Present Pain Present Pain Reported Location Lower Back Intensity 8 Scale Used Numeric (1 - 10) Pain Management Techniques Re-positioning Timing of Activity with Medications M4 PT-IP Mobility and Gait Start: 09/26/18 11:57 Freq: NEEDED Status: Active Protocol: Document 09/26/18 14:30 AB (Rec: 09/26/18 16:11 AB [id number]) PT-Bed Mobility Assessment Rolling Type of Rolling Log Rolling Level of Assist Standby Assistance Supine to Sit Supine to Sit Standby Assistance Bedrails Sit to Supine Sit to Supine Standby Assistance Head of Bed Elevated Scooting Scooting to Edge of Bed Standby Assistance PT-Transfer Assessment Sit to and From Stand Sit to and from Stand Contact Guard Assistance Minimal Assistance 1 Person Assistance Use of Upper Extremities Comments Mobility Comments pt initially requiring min A for sit to stand. educated on techniques and pt completed sit <>stand x 5 reps and was able to complete CGA without cues towards end of repetition . completed log roll bed mobility supine<>sit SBA with cues for techniques. Gait Assessment Gait Gait Assistance Required: Contact Guard Assist Minimum Assistance Distance (Feet) 30 Able to Maintain Weight Bearing Status Yes During Gait Assistive Devices Assistive Device Gait Belt Front Wheeled Walker Orthotic/Prosthetic Devices or Brace: No Gait Deviations General Gait Pattern Decreased Stride Length Decreased Feet Clearance Factors Limiting Gait Function Factors Limiting Gait Function Decreased Activity Tolerance Decreased Strength Limited Range of Motion Pain Poor Balance Poor Safety Awareness Comments Gait Comments BP sitting on EOB 117/55 without c/o dizziness; after walking BP decreased to 97/43. pt rested and agreed to walk again and BP checked: 113/60. BP in supine after tx: 124/ 60. pt completed ambulation 30 ft x2 using FWW CGA to min A and cues to activate quad muscles . (+) bilateral knee buckling requiring mod A to recover. pt stated that her RLE is longer than LLE. will use her shoes with lift next tx session to increase stability. opted not to do stairs today due to pt's decrease BP after ambulation and (+) knee buckling. pt educated on exercises. M5 PT-IP Objective Assessments Start: 09/26/18 11:57 Freq: NEEDED Status: Active Protocol: Document 09/26/18 09:30 AB (Rec: 09/26/18 12:24 AB [id number]) Orientation Orientation/Cognition Level of Alertness Alert Orientation Name Age Birthday Month Date Year Day of Week Place Situation Gross Range of Motion Lower Extremity ROM Assessment Within Functional Limits Strength Lower Extremity Strength Assessment Bilaterally Impaired Comments Strength Comments BLE weakness L>R RLE: 4-/5 LLE: 3+/5 Coordination Assessment Gross Coordination Gross Coordination WNL M6 PT-IP Treatment Start: 09/26/18 11:57 Freq: NEEDED Status: Active Protocol: Document 09/26/18 14:30 AB (Rec: 09/26/18 16:11 AB [id number]) Physical Therapy Treatment Exercises Exercises Seated Knee Flexion/Extension Education Education Provided Precautions Weight Bearing Status Post-Op Packet Safety M7 PT-IP Assessment and Plan Start: 09/26/18 11:57 Freq: NEEDED Status: Active Protocol: Document 09/26/18 14:30 AB (Rec: 09/26/18 16:11 AB [id number]) PT Summary Assessment and Plan Potential Rehabilitation Potential Good Summary Impairments Pain ROM Strength Balance Coordination Sensation Tone Bed Mobility Transfers Gait Activity Tolerance Progress Towards Goals Slow Progress due to Medical Issues Slow Progress due to Activity Tolerance Assessment Summary pt progressing slowly but continues to require min A with mobility. informed pt regarding caregiver training and stated that her son will come in at around 11 am tomorrow. d/c plans depending if son will be able to assist pt safely and if pt will be able to complete long distance ambulation and stair climbing safely. will continue to assess. Goals Bed Mobility Goal Standby Assistance Transfer Goal Standby Assistance Front Wheeled Walker Gait Goal Standby Assistance Front Wheel Walker Gait Distance 150 Other Goals up/down 2 steps with bilateral rails Days to Meet Goals 5 Frequency of Treatment Frequency Of Treatment Twice a Day Treatment Plan Physical Therapy Treatment Plan Bed Mobility Training Transfer Training Gait Training Therapeutic Exercise Balance Retraining Post Op Education Discharge Planning Hot or Cold Pack Neuromuscular Re-ed Coordination Retraining Manual Therapy Recommendations To Nursing Amount of Assist Needed 1 Person Assist Discharge Recommendations PT Discharge Recommendations Home with 20/06 Assist Home Health SNF Rehab
--- NOTE | 2018-09-26 15:49 | PC.NURSE ---
Late entry: Back dressing replaced this morning per instruction from ortho REYNALDO Burciaga. Two incisions parallel to each other were well-approximated and without active bleeding or drainage noted. Covered with 4X4's, abd pads and medipore- dressing has remained C/D/I since it was changed. Rincon dc'd at 1230 per patient request (PT/OT felt it was appropriate from a mobility standpoint). Voided 300 ml since rincon dc'd and she feels like she emptied her bladder.
[2018-09-26 16:45] VITALS: BP 114/58; PULSE 90; RESP 18; TEMP 37; O2SAT 97
[2018-09-26] MEDS: ATORVASTATIN 20 MG TABLET 40 MG PO (19:10)
[2018-09-26] MEDS: SENNOSIDES 8.6 MG TABLET 17.2 MG PO (19:11)
[2018-09-26] MEDS: LATANOPROST 0.005% OPHTH 2.5 ML 1 DROPS EYE-BOTH (19:11)
[2018-09-26 21:59] VITALS: BP 112/61; PULSE 91; RESP 16; TEMP 37.2; O2SAT 97
[2018-09-27] VITALS (7 sets, daily range): BP systolic 100–121; BP diastolic 48–58; PULSE 84–98; RESP 16–18; TEMP 36.5–37.6; O2SAT 92–98
--- NOTE | 2018-09-27 00:17 | PC.NURSE ---
Addendum entered by Brenda Webster R.N. 09/27/18 06:30: pt woke up at 0540 with 9/10 pain and c/o aches and pains all over. I administered 5mg oxycodone and 25mg Vistaril. Patient is stating that she wants to stay for another night, when asked why she says that she doesn't think she can do it. Patient unable to find the words to elaborate. When prompted she will agree with the statement that she would like to work with PT and OT some more to feel more confident. Patient also states that she doesn't have a lot of help at home (lives with who has dementia). Original Note: NOC pt resting calmly on back. Denying pain/nausea/dizziness. O2 sat was 88% RA, asked pt to deep breath; she took 5-10 deep breaths (intermittent coughing) and was able to sat 96%. Patient using eye-shades and ear plugs. SCD's on bilaterally.
[2018-09-27] MEDS: hydrOXYzine pamoate 25 MG CAPSULE PO ×2 (05:48→20:40)
[2018-09-27] MEDS: OXYCODONE IR 5 MG TABLET 10 MG PO ×2 (05:49→09:03)
--- NOTE | 2018-09-27 08:10 | P.PN_ITS ---
Subjective Date Patient Seen: 09/27/18 Time Patient Seen: 07:30 Interval history: POD #2 status post L2-[address] Del Toro. Patient reports I had a bad night last night. She reports that she was in severe pain all over. Her pain has now resolved with vistrail 25mg and oxycodone 10mg. She reports mobilizing with PT yesterday. During PT she experienced a low BP of 97/43 after walking. She reports being able to walk to bathroom with assistance yesterday. Her is home with dementia, however her son will be home to assist her upon discharge. She reports that her pain is well managed at this time. She denies any fever, chills, SOB, chest pain, nausea or vomiting. Exam Vital Signs (past 8 hours): - 09/27/18 00:18 09/27/18 03:39 Temperature 99.6 F 98.5 F Pulse Rate 84 95 H Respiratory Rate 16 16 Blood Pressure 116/56 L 105/58 L Pulse Oximetry 92 94 Oxygen Delivery Method Nasal Cannula Oxygen Flow Rate 0 Narrative Exam Narrative: Patient is sitting upright in chair in no acute distress. She is AOx3. Radial and dorsalis pedis pulses 2+ and symmetric. Sensation to light touch intact in LE bilaterally. Lumbar dressing CDI. Adeuqate strength in dorsiflexion, plantarflexion and sane nurse bilaterally. L calf mildly tender to palpation in comparison to R, otherwise calfs are soft and compressible. Objective Labs Result Diagrams: 09/26/18 06:28 Assessment & Plan Post-op Postoperative Procedures Operation Date: 09/25/18 07:45 Actual Procedures Side Surgeon p L2-3,L3-4,L4-5 TLIF w/Posterior Instru. Not Applicable Arik Del Toro MD Postoperative day: 2 Postoperative plan: routine post-op care Postoperative plan narrative: Continue mobilizing, sitting in chair and ambulating with PT. Continue pain management. Likely to be discharged home later today once cleared by PT.
[2018-09-27] MEDS: DOCUSATE 100 MG CAPSULE PO ×2 (09:01→20:31)
[2018-09-27] MEDS: METOPROLOL ER 25 MG TABLET PO (09:01)
--- NOTE | 2018-09-27 10:28 | PC.NURSE ---
Addendum entered by Ernestina Rocha R.N. 09/27/18 14:06: pt continues to be drowsy, working with PT reports pain is 6/10 medicated with tylenol. dressing to back folding up and coming off, placed island dressing, incisions to bilateral sides of spine are well approximated with sutures, no drainage and no s/sx of infection. Original Note: Addendum entered by Ernestina Rocha R.N. 09/27/18 13:23: pt continues to be drowsy, no c/o pain at this time. 1 SBA with FWW to bathroom, reported to student RN that when she goes she feels it stops and goes mid stream. This RN assess pt also reports that she had some hesitancy with urination prior to surgery, denies burning or frequency. sitting in chair call light within reach and chair alarm on. Original Note: Day shift. Pt is a&o able to make needs known, drowsy states she feels out of it from the pain medication, rates pain 7/10 was medicated and rates it 3/10, is sitting up in chair at bedside, this RN elevated legs and warm blanket give. Denies chest pain, SOB and H/A. Call light within reach and bed alarm for safety.
--- NOTE | 2018-09-27 10:48 | OT.IP.TRT ---
Current Diagnoses Spondylolisthesis, lumbar region (09/25/18) Other spondylosis with radiculopathy, lumbar region (09/25/18) Spinal stenosis, lumbar region with neurogenic claudication (09/25/18) Surgery Performed Operation Date: 09/25/18 07:45 Actual Procedures p L2-3,L3-4,L4-5 TLIF w/Posterior Instru.(Not Applicable) - Arik Del Toro MD Occupational Therapy Treatment Note M2 OT-IP Current Condition Start: 09/26/18 11:01 Freq: Status: Active Protocol: Document 09/26/18 10:58 PJM (Rec: 09/26/18 11:15 PJM [id number]) Occupational Therapy Current Condition Current Condition Evaluation Date 09/26/18 Treatment Diagnosis decreased self care, functional mobility s/p L3-5 Lumbar fusion Post Operative Precautions Lumbar Precautions Log Roll No Twisting Limit Bending Lifting Restriction of 10 lbs Gait Belt above Incisional Area M3 OT- IP Subjective and Pain Start: 09/26/18 11:01 Freq: Status: Active Protocol: Document 09/27/18 10:48 PJM (Rec: 09/27/18 13:37 PJM [id number]) OT- Subjective Occupational Therapy Visit Type Type Treatment Note Visit Start Time 10:16 Visit Stop Time 10:48 Total Visit Minutes 32 Notes Pt up in recliner when therapist arrived. Occupational Therapy Visit Comments Patient Comments How long will I be handicapped by all this pain? I had a really bad night. Patient/Caregiver Goals to have less pain and go home OT Pain Assessment Pain When Pain Assessed After Treatment Pain Present Pain Present Pain Reported Location Lower Back Intensity 7 Description Aching Acute M4 OT- IP ADL's Start: 09/26/18 11:01 Freq: Status: Active Protocol: Document 09/27/18 10:48 PJM (Rec: 09/27/18 13:37 PJM [id number]) OT BVZ-Bina-Nsprtln General Evaluation Self-Feeding Ability Independent OT ADL-Grooming General Evaluation Grooming Ability Standby Assistance Areas Needing Assistance Retrieving/Set-up of Grooming Items Face Washing Comments OT Grooming Comments pt standing at sink with FWW; provided education re: body mechanics; needs verbal cues to stand more upright OT ADL-Oral Care General Eval Oral Care Ability Standby Assistance Areas of Assistance Brushing Teeth Retrieving/Set-Up of Items Devices Oral Care Devices Toothbrush Comments Oral Care Comments pt stood total of 4 min at sink OT ADL-Dressing General Eval Lower Body Dressing Ability Minimal Assistance Areas Needing Assistance Underpants/Brief Socks Assistive Devices Dressing Assistive Devices [employer] Architect Sock Aid Comments OT Dressing Comments Provided education and practice re: use of asbestos surveyor and sock aid for lower body dressing with mod verbal cues require to problem solve unfamiliar techniques and equipt. Pt plans to order sock aid online with assist from son. OT ADL-Toileting Comments OT Toileting Comments pt declined this session OT ADL-Bathing Comments OT Bathing Comments to be assessed as activity tolerance improves; long bath sponge provided; pt plans to stand to shower and states M7 OT- IP Mobility and Balance Start: 09/26/18 11:01 Freq: Status: Active Protocol: Document 09/27/18 10:48 PJM (Rec: 09/27/18 13:37 PJ [id number]) OT-Transfer Assessment Sit to and From Stand Sit to and from Stand Contact Guard Assistance 1 Person Assistance Transfers Transfer Ability Contact Guard Assistance 1 Person Assistance Technique Transfer Destination Chair Transfer Technique Stand Step Pivot Devices Transfer Assistive Devices Gait Belt Front Wheeled Walker Comments Mobility Comments Pt needs verbal cues for hand placement and to align self in front of chair before sitting . OT- Gait Assessment Gait Gait Assistance Required: Contact Guard Assist Distance (Feet) 15 Assistive Devices Assistive Device Gait Belt Front Wheeled Walker OT- Balance Assessment Sitting Balance and Reactions Static Sitting Balance Ability Good Dynamic Sitting Balance Ability Good Standing Balance and Reactions Static Standing Balance Ability Good Dynamic Standing Balance Ability Good Comments Other Balance Tests/Deviations/Treatment during grooming at sink and : standing for clothing M9 OT- IP Assessment and Plan Start: 09/26/18 11:01 Freq: Status: Active Protocol: Document 09/27/18 10:48 PJM (Rec: 09/27/18 13:37 PJ [id number]) OT Summary Assessment and Plan Summary OT Impairments Pain Functional Mobility Dressing Toileting Bathing Toilet Transfers Shower Transfers Progress Towards Goals Slow Progress due to Pain Slow Progress due to Medical Issues Assessment Summary Pt still c/o of high pain levels today, but appears mildly over sedated with slowed speed of processing and some difficulty problem solving noted. Pt's pain level limiting activity tolerance. Pt would benefit from and additional day of practice with functional mobility and self care skills prior to return home with , who has dementia, and son (RN) who is staying with them to assist for 1-2 weeks. Goals Grooming Goal Independent Dressing Goal Independent Long Handled [place] [employer] Architect Sock Aid Toileting Goal Independent Bathing Goal Standby Assistance Toilet Transfer Goal Independent Shower Transfer Goal Standby Assistance Patient/Caregiver Education Goal Demonstrate Post-Op Precautions Demonstrate Energy Conservation and Pacing Caregiver Independent Assisting Patient OT-Other Goals Grooming to be done standing with good body mechanics. Days to Meet Goals 2 Frequency of Treatment Frequency Of Treatment Once a Day Treatment Plan OT Treatment Plan ADL Training Functional Mobility Patient/Family Education Discharge Planning Discharge Recommendations OT Discharge Recommendations Home with 20/06 Assist Home Equipment Needs ? shower seat; pt to obtain hard sock aid; long bath sponge provided
--- NOTE | 2018-09-27 12:07 | PT.IPTN ---
Current Diagnoses Spondylolisthesis, lumbar region (09/25/18) Other spondylosis with radiculopathy, lumbar region (09/25/18) Spinal stenosis, lumbar region with neurogenic claudication (09/25/18) Surgery Performed Operation Date: 09/25/18 07:45 Actual Procedures p L2-3,L3-4,L4-5 TLIF w/Posterior Instru.(Not Applicable) - Arik Del Toro MD Physical Therapy Treatment Note M2 PT-IP Current Condition Start: 09/26/18 11:57 Freq: NEEDED Status: Active Protocol: Document 09/26/18 09:30 AB (Rec: 09/26/18 12:24 AB [id number]) Physical Therapy Current Condition Current Condition Evaluation Date 09/26/18 Treatment Diagnosis L2-5 posterior fusion and laminectomy Onset Date 09/25/18 Precautions Lumbar Precautions Log Roll No Twisting Limit Bending Lifting Restriction of 10 lbs Gait Belt above Incisional Area M3 PT-IP Subjective Start: 09/26/18 11:57 Freq: NEEDED Status: Active Protocol: Document 09/27/18 12:06 GGD (Rec: 09/27/18 12:07 GGD [id number]) Subjective Physical Therapy Visit Type Type Patient Refusal Notes Pt refused states that she is to tired and been up to the bathroom and lot today. Recommendations To Nursing Amount of Assist Needed 1 Person Assist Discharge Recommendations PT Discharge Recommendations Home with 20/06 Assist Home Health SNF Rehab
[2018-09-27] MEDS: ACETAMINOPHEN 325 MG TABLET 650 MG PO (13:51)
--- NOTE | 2018-09-27 14:05 | PT.IPTN ---
Current Diagnoses Spondylolisthesis, lumbar region (09/25/18) Other spondylosis with radiculopathy, lumbar region (09/25/18) Spinal stenosis, lumbar region with neurogenic claudication (09/25/18) Surgery Performed Operation Date: 09/25/18 07:45 Actual Procedures p L2-3,L3-4,L4-5 TLIF w/Posterior Instru.(Not Applicable) - Arik Del Toro MD Physical Therapy Treatment Note M2 PT-IP Current Condition Start: 09/26/18 11:57 Freq: NEEDED Status: Active Protocol: Document 09/26/18 09:30 AB (Rec: 09/26/18 12:24 AB [id number]) Physical Therapy Current Condition Current Condition Evaluation Date 09/26/18 Treatment Diagnosis L2-5 posterior fusion and laminectomy Onset Date 09/25/18 Precautions Lumbar Precautions Log Roll No Twisting Limit Bending Lifting Restriction of 10 lbs Gait Belt above Incisional Area M3 PT-IP Subjective Start: 09/26/18 11:57 Freq: NEEDED Status: Active Protocol: Document 09/27/18 14:05 GGD (Rec: 09/27/18 15:39 GGD [id number]) Subjective Physical Therapy Visit Type Type Treatment Note Visit Start Time 13:35 Visit Stop Time 14:05 Total Visit Minutes 30 Number of MOLD SANDER Visits 1 Physical Therapy Visit Comments Patient Comments Pt states she willing to get up. Therapy Pain Assessment Pain When Pain Assessed At Rest Pain Present Pain Present Pain Reported Location Lower Back Intensity 6 Scale Used Numeric (1 - 10) M4 PT-IP Mobility and Gait Start: 09/26/18 11:57 Freq: NEEDED Status: Active Protocol: Document 09/27/18 14:05 GGD (Rec: 09/27/18 15:39 GGD [id number]) PT-Transfer Assessment Sit to and From Stand Sit to and from Stand Moderate Assistance 1 Person Assistance Use of Upper Extremities Equipment Transfer Assistive Device Gait Belt Front Wheeled Walker Orthotic/Prosthetic Devices or Brace: No Transfers Transfer Destination Chair Transfer Ability Level of Assist Moderate Assistance Use of Upper Extremities Comments Mobility Comments Pt need mod cues and assist for sit to stand. Gait Assessment Gait Gait Assistance Required: Minimum Assistance Distance (Feet) 40 Able to Maintain Weight Bearing Status Yes During Gait Assistive Devices Assistive Device Gait Belt Front Wheeled Walker Orthotic/Prosthetic Devices or Brace: No Gait Deviations General Gait Pattern Decreased Stride Length Decreased Feet Clearance Factors Limiting Gait Function Factors Limiting Gait Function Decreased Activity Tolerance Decreased Strength Limited Range of Motion Pain Poor Balance Poor Safety Awareness Comments Gait Comments Pt had knee buckling with gait . She had mild dizziness M5 PT-IP Objective Assessments Start: 09/26/18 11:57 Freq: NEEDED Status: Active Protocol: Document 09/26/18 09:30 AB (Rec: 09/26/18 12:24 AB [id number]) Orientation Orientation/Cognition Level of Alertness Alert Orientation Name Age Birthday Month Date Year Day of Week Place Situation Gross Range of Motion Lower Extremity ROM Assessment Within Functional Limits Strength Lower Extremity Strength Assessment Bilaterally Impaired Comments Strength Comments BLE weakness L>R RLE: 4-/5 LLE: 3+/5 Coordination Assessment Gross Coordination Gross Coordination WNL M6 PT-IP Treatment Start: 09/26/18 11:57 Freq: NEEDED Status: Active Protocol: Document 09/27/18 14:05 GGD (Rec: 09/27/18 15:39 GGD [id number]) Physical Therapy Treatment Education Education Provided Precautions Safety M7 PT-IP Assessment and Plan Start: 09/26/18 11:57 Freq: NEEDED Status: Active Protocol: Document 09/27/18 14:05 GGD (Rec: 09/27/18 15:39 GGD [id number]) PT Summary Assessment and Plan Summary Assessment Summary Pt need mod cues for mobility. She need mod A for sit to stand. She had difficulity following cues. She did have knee buckling with gait and unsteadiness. She had heavy use of UE on FWW with gait. Frequency of Treatment Frequency Of Treatment Twice a Day Treatment Plan Physical Therapy Treatment Plan Bed Mobility Training Transfer Training Gait Training Therapeutic Exercise Balance Retraining Post Op Education Discharge Planning Hot or Cold Pack Neuromuscular Re-ed Coordination Retraining Manual Therapy Recommendations To Nursing Amount of Assist Needed 1 Person Assist Discharge Recommendations PT Discharge Recommendations Home with 20/06 Assist Home Health SNF Rehab
[2018-09-27] MEDS: ATORVASTATIN 20 MG TABLET 40 MG PO (20:30)
[2018-09-27] MEDS: SENNOSIDES 8.6 MG TABLET 17.2 MG PO (20:31)
[2018-09-27] MEDS: LATANOPROST 0.005% OPHTH 2.5 ML 1 DROPS EYE-BOTH (20:31)
[2018-09-27] MEDS: ONDANSETRON 4 MG/2 ML INJ IV (21:55)
--- NOTE | 2018-09-27 22:48 | PC.NURSE ---
Roxanne shift note: Patient awake and alert, pleasant and cooperative. Reports feeling more awake and alert in comparison to this morning. Has declined pain medications this shift, no c/o back pain, however reports discomfort to abdomen. Described abdominal discomfort as intermittent and sharp, passed flatus and reported relief. Encouraged ambulation and mobility. Medicated with Zofran IV x1 for mild nausea, with adequate relief. Ambulating in hallway with 1PA, steady gait noted. Call light within reach, BA active.
[2018-09-28 00:05] VITALS: BP 110/52; PULSE 80; RESP 16; TEMP 37.7; O2SAT 97
--- NOTE | 2018-09-28 01:36 | PC.NURSE ---
Addendum entered by Rashaad Gautam R.N. 09/28/18 06:56: 0530: Awake, walking in awan with walker, gait belt, and sba. Steady on her feet. Original Note: Hospice Care Transitions Coordinator Note: 0015: Awake, up to bathroom with walker and 1 person assist. Slow and steady on her feet. Dressing to lower back is cdi. Alert, oriented X3. Saline lock in place in lt forearm.
[2018-09-28 03:00] VITALS: BP 112/48; PULSE 91; RESP 16; TEMP 37.4; O2SAT 97
[2018-09-28] MEDS: ACETAMINOPHEN 325 MG TABLET 650 MG PO ×2 (04:18→10:00)
[2018-09-28] MEDS: hydrOXYzine pamoate 25 MG CAPSULE PO (04:18)
[2018-09-28 08:00] VITALS: BP 113/56; PULSE 78; RESP 16; TEMP 36.6; O2SAT 96
[2018-09-28] MEDS: DOCUSATE 100 MG CAPSULE PO (08:45)
[2018-09-28] MEDS: METOPROLOL ER 25 MG TABLET PO (08:45)
--- NOTE | 2018-09-28 11:28 | CM.DPC ---
DCP Cont: Met with patient in room. Discussed home discharge plan. Patient is wanting to go home, has with dementia, but also has son available. Mentioned home health, such as occupational and physical therapy, along with bath-aide. Patient not objecting to this. Have been in contact with Siomara, in physical therapy. She has voiced some concerns of patient safety and understanding safety at home as well. Stated that she will be meeting with son today for caregiver training. Skilled may be an option as well. P: DCP to follow closely. Collaborate with physical therapy to note safety needs, and if home health would be an option for patient. Gladys Agarwal RN/Bid Clerk
--- NOTE | 2018-09-28 11:40 | PT.IPTN ---
Current Diagnoses Spondylolisthesis, lumbar region (09/25/18) Other spondylosis with radiculopathy, lumbar region (09/25/18) Spinal stenosis, lumbar region with neurogenic claudication (09/25/18) Surgery Performed Operation Date: 09/25/18 07:45 Actual Procedures p L2-3,L3-4,L4-5 TLIF w/Posterior Instru.(Not Applicable) - Arik Del Toro MD Physical Therapy Treatment Note M2 PT-IP Current Condition Start: 09/26/18 11:57 Freq: NEEDED Status: Active Protocol: Document 09/26/18 09:30 AB (Rec: 09/26/18 12:24 AB [id number]) Physical Therapy Current Condition Current Condition Evaluation Date 09/26/18 Treatment Diagnosis L2-5 posterior fusion and laminectomy Onset Date 09/25/18 Precautions Lumbar Precautions Log Roll No Twisting Limit Bending Lifting Restriction of 10 lbs Gait Belt above Incisional Area M3 PT-IP Subjective Start: 09/26/18 11:57 Freq: NEEDED Status: Active Protocol: Document 09/28/18 11:25 GGD (Rec: 09/28/18 12:16 GGD [email or web address]) Subjective Physical Therapy Visit Type Type Treatment Note Visit Start Time 11:00 Visit Stop Time 11:25 Total Visit Minutes 25 Number of COMPENSATION CONSULTING MANAGER Visits 2 Physical Therapy Visit Comments Patient Comments Pt states she is feeling better. Therapy Pain Assessment Pain When Pain Assessed At Rest Pain Present Pain Present Pain Reported Location Lower Back Intensity 2 Scale Used Numeric (1 - 10) M4 PT-IP Mobility and Gait Start: 09/26/18 11:57 Freq: NEEDED Status: Active Protocol: Document 09/28/18 11:25 GGD (Rec: 09/28/18 12:16 GGD [email or web address]) PT-Transfer Assessment Sit to and From Stand Sit to and from Stand Contact Guard Assistance Use of Upper Extremities Equipment Transfer Assistive Device Gait Belt Front Wheeled Walker Orthotic/Prosthetic Devices or Brace: No Transfers Transfer Destination Chair Transfer Ability Level of Assist Contact Guard Assistance Use of Upper Extremities Comments Mobility Comments Pt need min cues for sit to stand. Gait Assessment Gait Gait Assistance Required: Standby Assistance Distance (Feet) 50 Able to Maintain Weight Bearing Status Yes During Gait Assistive Devices Assistive Device Gait Belt Front Wheeled Walker Orthotic/Prosthetic Devices or Brace: Yes Gait Deviations General Gait Pattern Decreased Stride Length Decreased Feet Clearance Factors Limiting Gait Function Factors Limiting Gait Function Decreased Activity Tolerance Decreased Strength Limited Range of Motion Poor Balance Poor Safety Awareness Comments Gait Comments no knee buckling with gait. Stair Climbing Assessment Evaluation Level of Assist On Stairs Contact Guard Assistance Devices Stair Climbing Assistive Devices Left Railing Right Railing Technique/Endurance Stair Climbing Direction Ascend and Descend Stair Climbing Technique Step to Step Number of Steps Climbed 3 Query Text: Stair Climbing Set # Repetitions (reps) 1 Comments Stair Climbing Comments Knee buckled one time with stair mobility. Son was instructed on safe assist for stair. M5 PT-IP Objective Assessments Start: 09/26/18 11:57 Freq: NEEDED Status: Active Protocol: Document 09/26/18 09:30 AB (Rec: 09/26/18 12:24 AB [id number]) Orientation Orientation/Cognition Level of Alertness Alert Orientation Name Age Birthday Month Date Year Day of Week Place Situation Gross Range of Motion Lower Extremity ROM Assessment Within Functional Limits Strength Lower Extremity Strength Assessment Bilaterally Impaired Comments Strength Comments BLE weakness L>R RLE: 4-/5 LLE: 3+/5 Coordination Assessment Gross Coordination Gross Coordination WNL M6 PT-IP Treatment Start: 09/26/18 11:57 Freq: NEEDED Status: Active Protocol: Document 09/28/18 11:25 GGD (Rec: 09/28/18 12:16 GGD [email or web address]) Physical Therapy Treatment Education Education Provided Precautions Safety M7 PT-IP Assessment and Plan Start: 09/26/18 11:57 Freq: NEEDED Status: Active Protocol: Document 09/28/18 11:25 GGD (Rec: 09/28/18 12:16 GGD [email or web address]) PT Summary Assessment and Plan Summary Assessment Summary Pt needed less cues and assist for mobility. She had improved stablity with gait. Her son was able to assist with cues and mobility. Frequency of Treatment Frequency Of Treatment Twice a Day Recommendations To Nursing Amount of Assist Needed 1 Person Assist Discharge Recommendations PT Discharge Recommendations Home with Assistance
--- NOTE | 2018-09-28 11:56 | OT.IP.TRT ---
Current Diagnoses Spondylolisthesis, lumbar region (09/25/18) Other spondylosis with radiculopathy, lumbar region (09/25/18) Spinal stenosis, lumbar region with neurogenic claudication (09/25/18) Surgery Performed Operation Date: 09/25/18 07:45 Actual Procedures p L2-3,L3-4,L4-5 TLIF w/Posterior Instru.(Not Applicable) - Arik Del Toro MD Occupational Therapy Treatment Note M3 OT- IP Subjective and Pain Start: 09/26/18 11:01 Freq: Status: Active Protocol: Document 09/28/18 11:56 PJM (Rec: 09/28/18 15:59 PJM [email or web address]) OT- Subjective Occupational Therapy Visit Type Type Treatment Note Visit Start Time 11:30 Visit Stop Time 11:56 Total Visit Minutes 26 Notes Pt's and son here for education. Note that per , has dementia with short term memory deficits. Occupational Therapy Visit Comments Patient Comments I feel much better today. I slept better. Patient/Caregiver Goals to go home today OT Pain Assessment Pain When Pain Assessed After Treatment Pain Present Pain Present Pain Reported Location Lower Back Intensity 3 Description Aching Acute Pain Behaviors Guarding Management Techniques Distraction Re-positioning Timing of Activity with Medications M4 OT- IP ADL's Start: 09/26/18 11:01 Freq: Status: Active Protocol: Document 09/28/18 11:56 PJM (Rec: 09/28/18 15:59 PJM [email or web address]) OT ADL-Grooming Comments OT Grooming Comments pt declines grooming at sink this session; provided further education re: body mechanics OT ADL-Dressing General Eval Upper Body Dressing Ability Independent Lower Body Dressing Ability Minimal Assistance Areas Needing Assistance Pull-Over Shirt Underpants/Brief Pants/Shorts Socks Shoes Assistive Devices Dressing Assistive Devices Long Handled Shoe Horn System Validation Engineer Sock Aid Comments OT Dressing Comments Provided further education/ practice re: lower body dressing with adaptive equipment. Pt needs min verbal cues for sock aid use and can provide assist with tying shoes. Pt needed min assist to don shoes with shoe horn due to tight fit. Pt will wear slip on slippers at home. OT ADL-Toileting General Evaluation Toileting Ability Standby Assistance Areas Needing Assistance Manage Clothing Perform Perineal Hygiene OT ADL-Bathing Bathing Type Bathing Type Shower General Evaluation Bathing Ability Standby Assistance Areas Needing Assistance Retrieving/Setting Up Items Devices Bathing Equipment Long Handled Sponge or Cotton Dispatcher Held Shower Sprayer Grab Bars Comments OT Bathing Comments Provided education re: shower seat options, resources and son will assist pt with obtaining one and long bath sponge. M6 OT- IP Functional Cognition Start: 09/26/18 11:01 Freq: Status: Active Protocol: Document 09/28/18 11:56 PJM (Rec: 09/28/18 15:59 [facility] [email or web address]) Cognitive Factors Limiting Selfcare Function Cognitive Ability Level of Alertness Alert Patient Orientation Name Age Birthday Month Date Year Day of Week Place Situation Attention Span Ability Capable of Focused Attention Capable of Sustained Attention Ability to Follow Commands Able to Follow One Step Commands Problem Solving Ability Needs Assist to Identify Solutions Cognitive Comments Cognitive Assessment Comments Pt more alert today with improved speed of processing and problem solving re: equipment use. M7 OT- IP Mobility and Balance Start: 09/26/18 11:01 Freq: Status: Active Protocol: Document 09/28/18 11:56 PJM (Rec: 09/28/18 15:59 [facility] [email or web address]) OT-Transfer Assessment Sit to and From Stand Sit to and from Stand Standby Assistance Transfers Transfer Ability Standby Assistance Technique Transfer Destination Chair Comments Mobility Comments min verbal cues re: hand placement on chair OT- Gait Assessment Comments Gait Ability Comments see P.T. notes OT- Balance Assessment Sitting Balance and Reactions Static Sitting Balance Ability Good Dynamic Sitting Balance Ability Good Standing Balance and Reactions Static Standing Balance Ability Good Dynamic Standing Balance Ability Good M9 OT- IP Assessment and Plan Start: 09/26/18 11:01 Freq: Status: Active Protocol: Document 09/28/18 11:56 PJM (Rec: 09/28/18 15:59 [facility] [email or web address]) OT Summary Assessment and Plan Potential Rehabilitation Potential Good Summary Progress Towards Goals Safe For Discharge Goals Met Assessment Summary All OT education completed with pt/family today regarding adapted ADLS within lumbar spine precautions. Pt verbalizes and demonstrates understanding. Capable son will be staying with pt/ for next 2 weeks. Pt declines HH services at present. Pt plans to d/c home with 24 hr family assist today. Frequency of Treatment Frequency Of Treatment Discharge Discharge Recommendations OT Discharge Recommendations Home with 24/7 Assist Home Equipment Needs shower seat, sock aid long bath sponge (son to obtain equipment for pt)
--- NOTE | 2018-09-28 12:03 | PM.DS.1 ---
History of Present Illness Date Patient Seen: 09/28/18 Time Patient Seen: 07:20 Chief complaint: [id number] Narrative: Patient has been having chronic back pain and worsening lumbar radiculopathy.Patient failed multiple conservative management with worsening pain weakness and numbness in her lower extremity. Patient has been having difficulty performing activity of daily living. After discussing risks benefits of treatment options, patient elected proceed with surgery. Discharge Providers Date of admission: 09/25/18 06:22 Primary care physician: Calvin Vergara MD Consults: 09/25/18 13:56 Consult to Occupational Therapy Evaluate & Treat Comment: Physician Instructions: Evaluate and treat Consult to Physical Therapy Evaluate & Treat Comment: Physician Instructions: Evaluate and Treat Discharge provider: Rosario Cardozo PA-C Discharge Date: 09/28/18 Summary Discharge Diagnosis: 1. L2-3, L3-4, L4-5 spondylolisthesis 2. Lumbar scoliosis 3. Lumbar spondylosis with radiculopathy Hospital Course: Patient was admitted status post L2-3, L3-4, L4-5 Postero-lateral and posterior interbody fusion, L2-3, L3-4, L4-5 interbody cage placement, L2-3, L3-4, L4-5 decompressive laminectomy with bilateral facetecomies, L2-3, L3-4, L4-5 Posterior segmental instrumentation, [place] of bone marrow from iliac crest and Utilization of microsurgical technique and operating microscope by Dr. Del Toro. Patient tolerated procedure well with no major complications. Patient transferred to the floor and seen by PT who recommended she be discharged home with outpatient PT. Her pain was well controlled with 10mg oxycodone, 25mg Vistaril and 650mg of Tylenol. Patient is stable and ready to be discharged on 09/28/18. Patient and son is home to assist her. Calfs are soft and compressible bilaterally. Lumbar cover site dressing on. Exam Vital Signs (past 8 hours): - 09/28/18 08:00 Temperature 97.9 F Pulse Rate 78 Respiratory Rate 16 Blood Pressure 113/56 L Pulse Oximetry 96 Oxygen Delivery Method Room Air Oxygen Flow Rate 0 Narrative Exam Narrative: Patient is examined in chair. Patient and son is sitting bedside. Patient is AOx3. Patient is in no acute distress. Radial and dorsalis pedis pulses 2+ and symmetric. Lumbar dressing CDI. L knee brace noted. Adequate muscle strength in dorsiflexion, plantarflexion and pancake professional bilaterally. Sensation to light touch intact in LE bilaterally. L calf is mildly tender in comparison to the R, otherwise calfs are soft and compressible. Patient is sitting upright comfortably in chair in no acute distress. She reports that her pain is well managed at this time. She reports she feels much better in comparison to yesterday. Patient reports that she would like to go home today. Her and son is home to assist her upon discharge. She denies any fever, chills, nausea, vomiting, SOB or chest pain. Objective Labs Result Diagrams: 09/26/18 06:28 Discharge Plan Discharge Plan Patient Disposition: Home Discharge Med Rec/Prescriptions Prescriptions: New acetaminophen 325 mg Tablet 650 mg PO Q6HR PRN (Reason: Pain, Mild (1-3)) Qty: 0 RF: 0 docusate sodium 100 mg Capsule 100 mg PO BID Qty: 0 RF: 0 oxycodone 5 mg Tablet 10 mg PO Q4H PRN (Reason: Pain, Severe (7-10)) Qty: 40 RF: 0 hydroxyzine pamoate 25 mg Capsule 25 mg PO Q4HR PRN (Reason: Nausea And Vomiting) Qty: 50 RF: 1 Continue latanoprost 0.005 % Drops 1 drp EYE-BOTH BEDTIME RF: 0 atorvastatin 40 mg Tablet 40 mg PO BEDTIME RF: 0 ibuprofen 200 mg Tablet 400 mg PO BEDTIME RF: 0 metoprolol succinate 25 mg Tablet Extended Release 24 Hr 25 mg PO DAILY RF: 0 azelastine 137 mcg (0.1 %) Aerosol,[place] 1 spray INTRANASAL PRN PRN (Reason: seasonal allergies) RF: 0 fluticasone [Flovent HFA] 110 mcg/actuation Hfa Aerosol Inhaler 1 puff INHALATION BID PRN (Reason: Seasonal allergies) RF: 0 Discontinued aspirin 81 mg Tablet,Chewable 81 mg PO DAILY RF: 0 Follow up/Referrals: Arik Del Toro MD [Physician] - As previously scheduled (Follow up at [facility] [place] on 10/02/18 at scheduled appointment.) Provider Discharge Instructions Diet: Diet as Tolerated Activity: Limit bending, lifting and twisting. Continue to use walker/cane until cleared by PT. Cold/Heat Therapy: Ice compress as needed. Skin/Wound/Dressing Care Report to your healthcare provider any signs of infection, such as:: chills, fever, night sweats, increased pain and unusual drainage Dressing: Keep clean and dry. Visit Report/Discharge Packet Instructions: DI for Transforaminal Lumbar Interbody Fusion Visit Report Forms: Stroke Signs & Symptoms Discharge Data Primary Care Provider: Calvin Vergara Attending Provider: Arik Del Toro Admit Date/Time: 09/25/18 06:22 Discharges patient from system. Discharge Date/Time: 09/28/18 13:15
--- NOTE | 2018-09-28 12:08 | P.DS_ITS ---
History of Present Illness Date Patient Seen: 09/28/18 Time Patient Seen: 07:20 Chief complaint: [id number] Narrative: Patient has been having chronic back pain and worsening lumbar radiculopathy.Patient failed multiple conservative management with worsening pain weakness and numbness in her lower extremity. Patient has been having difficulty performing activity of daily living. After discussing risks benefits of treatment options, patient elected proceed with surgery. Discharge Providers Date of admission: 09/25/18 06:22 Primary care physician: Calvin Vergara MD Consults: 09/25/18 13:56 Consult to Occupational Therapy Evaluate & Treat Comment: Physician Instructions: Evaluate and treat Consult to Physical Therapy Evaluate & Treat Comment: Physician Instructions: Evaluate and Treat Discharge provider: Rosario Cardozo PA-C Discharge Date: 09/28/18 Summary Discharge Diagnosis: 1. L2-3, L3-4, L4-5 spondylolisthesis 2. Lumbar scoliosis 3. Lumbar spondylosis with radiculopathy Hospital Course: Patient was admitted status post L2-3, L3-4, L4-5 Postero- lateral and posterior interbody fusion, L2-3, L3-4, L4-5 interbody cage placement, L2-3, L3-4, L4-5 decompressive laminectomy with bilateral facetecomies, L2-3, L3-4, L4-5 Posterior segmental instrumentation, [place] of bone marrow from iliac crest and Utilization of microsurgical technique and operating microscope by Dr. Del Toro. Patient tolerated procedure well with no major complications. Patient transferred to the floor and seen by PT who recommended she be discharged home with outpatient PT. Her pain was well controlled with 10mg oxycodone, 25mg Vistaril and 650mg of Tylenol. Patient is stable and ready to be discharged on 09/28/18. Patient and son is home to assist her. Calfs are soft and compressible bilaterally. Lumbar cover site dressing on. Exam Vital Signs (past 8 hours): - 09/28/18 08:00 Temperature 97.9 F Pulse Rate 78 Respiratory Rate 16 Blood Pressure 113/56 L Pulse Oximetry 96 Oxygen Delivery Method Room Air Oxygen Flow Rate 0 Narrative Exam Narrative: Patient is examined in chair. Patient and son is sitting bedside. Patient is AOx3. Patient is in no acute distress. Radial and dorsalis pedis pulses 2+ and symmetric. Lumbar dressing CDI. L knee brace noted. Adequate muscle strength in dorsiflexion, plantarflexion and car wash supervisor bilaterally. Sensation to light touch intact in LE bilaterally. L calf is mildly tender in comparison to the R, otherwise calfs are soft and compressible. Patient is sitting upright comfortably in chair in no acute distress. She reports that her pain is well managed at this time. She reports she feels much better in comparison to yesterday. Patient reports that she would like to go home today. Her and son is home to assist her upon discharge. She denies any fever, chills, nausea, vomiting, SOB or chest pain. Objective Labs Result Diagrams: 09/26/18 06:28 Discharge Plan Discharge Plan Patient Disposition: Home Discharge Med Rec/Prescriptions Prescriptions: New acetaminophen 325 mg Tablet 650 mg PO Q6HR PRN (Reason: Pain, Mild (1-3)) Qty: 0 RF: 0 docusate sodium 100 mg Capsule 100 mg PO BID Qty: 0 RF: 0 oxycodone 5 mg Tablet 10 mg PO Q4H PRN (Reason: Pain, Severe (7-10)) Qty: 40 RF: 0 hydroxyzine pamoate 25 mg Capsule 25 mg PO Q4HR PRN (Reason: Nausea And Vomiting) Qty: 50 RF: 1 Continue latanoprost 0.005 % Drops 1 drp EYE-BOTH BEDTIME RF: 0 atorvastatin 40 mg Tablet 40 mg PO BEDTIME RF: 0 ibuprofen 200 mg Tablet 400 mg PO BEDTIME RF: 0 metoprolol succinate 25 mg Tablet Extended Release 24 Hr 25 mg PO DAILY RF: 0 azelastine 137 mcg (0.1 %) Aerosol,[place] 1 spray INTRANASAL PRN PRN (Reason: seasonal allergies) RF: 0 fluticasone [Flovent HFA] 110 mcg/actuation Hfa Aerosol Inhaler 1 puff INHALATION BID PRN (Reason: Seasonal allergies) RF: 0 Discontinued aspirin 81 mg Tablet,Chewable 81 mg PO DAILY RF: 0 Follow up/Referrals: Arik Del Toro MD [Physician] - As previously scheduled (Follow up at [facility] [place] on 10/02/18 at scheduled appointment.) Provider Discharge Instructions Diet: Diet as Tolerated Activity: Limit bending, lifting and twisting. Continue to use walker/cane until cleared by PT. Cold/Heat Therapy: Ice compress as needed. Skin/Wound/Dressing Care Report to your healthcare provider any signs of infection, such as:: chills, fever, night sweats, increased pain and unusual drainage Dressing: Keep clean and dry. Visit Report/Discharge Packet Instructions: DI for Transforaminal Lumbar Interbody Fusion Visit Report Forms: Stroke Signs & Symptoms Discharge Data Primary Care Provider: Calvin Vergara Attending Provider: Arik Del Toro Admit Date/Time: 09/25/18 06:22 Discharges patient from system. Discharge Date/Time: 09/28/18 13:15
--- NOTE | 2018-09-28 12:27 | CM.DPC ---
Patient has discharge orders. Checked in with patient, son in room as well as . Mentioned home health. Patient has elected not to have home health at this time. Son is supportive as well. Patient is feeling comfortable being home, and does not feel that she needs any assistance at this time. P: Patient is to be discharged home today. Son is transporting. Gladys Agarwal RN/Microelectronics Technician
--- NOTE | 2018-09-28 13:17 | PC.NURSE ---
discharge instructions reviewed with patient and her son. Patient and son have no further questions or concerns at this time. Patient states she has follow up appointments scheduled. Coversite dressing to back intact and in place. Patient instructed to call MD with questions or concerns. Escorted out via wheelchair with all belongings by MARYBEL.
== END 2018-09-28 13:15 | disposition home or self-care (01) | DRG 455 ==
PROVIDERS: Admitting Provider Orthopaedic Surgery Orthopaedic Surgery of the Spine; Family Provider Internal Medicine; PCP Internal Medicine; Visit Provider Orthopaedic Surgery Orthopaedic Surgery of the Spine
PROC: 0SG10AJ Fusion of 2 or more Lumbar Vertebral Joints with Interbody Fusion Device, Posterior Approach, Anterior Column, Open Approach (ICD-10-PCS; principal; 2018-09-25 07:45)
DX: M41.20 Other idiopathic scoliosis, site unspecified (principal); M43.16 Spondylolisthesis, lumbar region; M48.061 Spinal stenosis, lumbar region without neurogenic claudication; I10 Essential (primary) hypertension; J45.909 Unspecified asthma, uncomplicated; I34.1 Nonrheumatic mitral (valve) prolapse
CPT/HCPCS: 36415; 72100; 76001; 85014; 85018; 94760; 97116; 97162; 97165; 97530; 97535; C1776; C9290; J0330; J1100; J1170; J2405; J2704; J3010

== ENCOUNTER 2023-02-22 14:48 | Outpatient (CLI) | payer MEDICARE, SELFPAY ==
[2023-01-24 15:53] VITALS: BMI 26.1
[2023-02-22] VITALS (7 sets, daily range): BP systolic 135–153; BP diastolic 69–78; PULSE 69–77; RESP 16–24; O2SAT 96–99
--- NOTE | 2023-02-22 14:49 | DI.RAD.S_ITS ---
PROCEDURE: PAIN L INTERLAMINAR/CAUDAL INJ INDICATIONS: SPONDYLOSIS COMPARISON: [facility], MR, MR LUMBAR SPINE WITHOUT CONTRAST, 01/17/2023, 19:27. FINDINGS: Fluoroscopic spot filming was performed to verify placement of a spinal needle at the L1-L2 level, as labeled on the films. Appropriate location of the needle tip was confirmed by injection of iodinated contrast. IMPRESSION: Intraprocedural examination within normal limits. Dictated by: Ankush Larson M.D. on 02/22/2023 at 16:03 Approved by: Ankush Larson M.D. on 02/22/2023 at 16:03
[2023-02-22] MEDS: MIDAZOLAM 2 MG/2 ML VIAL IV (16:05)
[2023-02-22] MEDS: IOPAMIDOL 15 ML VIAL 3 ML INJ (16:09)
[2023-02-22] MEDS: DEXAMETHASONE 10 MG/ML VIAL 20 MG INJ (16:09)
[2023-02-22] MEDS: BETAMETHASONE 30 MG/5 ML MDV 6 MG INJ (16:09)
[2023-02-22] MEDS: BUPIVACAINE 0.25% (PF) VIAL 2 ML INJ (16:10)
--- NOTE | 2023-03-15 15:27 | P.PCN_ITS ---
Date/Time/Diagnoses Date of procedure: 02/22/23 Time of procedure: 16:04 Pre-procedure diagnosis: 1. HNP WITH RADICULAR FEATURES, 2. MULTILEVEL CENTRAL STENOSIS, Post-procedure diagnosis: same Procedure Notes Procedure: 1. FLUOROSCOPICALLY GUIDED CONTRAST CONTROLLED INTERLAMINAR EPIDURAL STEROID INJECTION - L1/2 Indications: Roxy is referred by Dr. Vergara for treatment of Bilateral Foraminal Stenosis L>R LE symptoms. Physician: Marcin Whitaker Total Fluoroscopy time (seconds): 6 Total sedation minutes: 12 Complications: none Procedure in detail & Post-procedure care: FINDINGS Multilevel Central Spinal Stenosis with Nerve Root Compression DESCRIPTION OF PROCEDURE Fluoroscopically guided, contrast-controlled L1/2 translaminar epidural steroid injection. Following review of allergy and review of potential side effects and complications, including, but not necessarily limited to, infection, allergic reaction, local tissue breakdown, temporary as well as permanent nerve injury, paralysis, stroke and possible , the patient indicated that the patient understood and agreed to proceed. An informed consent document was signed by the patient, witnessed by a nurse, and placed in the patient's chart. Additionally, other treatment options including modalities, medications, and physical therapy were reviewed with the patient. After review of previous anaesthesic history and IV conscious sedation the patient was deemed safe to proceed with todays procedure with IV conscious sedation as ASA class II designation. Safety time-out was performed to confirm patient ID, procedure to be performed and site of procedure. IV sedation was accomplished with a combination of 2mg of Versed was administered by the RN after DO order, titrated to patient comfort during the course of the procedure while the patient remained responsive to all verbal commands In the prone position, following sterile prep and drape of the lumbar region, the L1/2 translaminar space was identified fluoroscopically. The skin was anesthetized via a 25-gauge, 1.5-inch needle with 1% lidocaine solution. At this point, a 22-gauge short bevel spinal needle was atraumatically introduced a nd advanced under fluoroscopic guidance into the region of the L1/2 translaminar space. Depth was confirmed on lateral view. Radiological data, including multiple fluoroscopic views of the lumbar spine, reveal a spinal needle at the L1/2 translaminar space. Lateral views then show placement of the needle in the epidural space. Subsequent views show contrast material flowing superiorly and inferiorly in the epidural space. No vascular or intrathecal uptake is observed. At this point, using loss of resistance technique with saline and air, the epidural space was entered. This was confirmed following negative aspiration with injection of approximately 1.5 cc of Isovue 200, showing excellent epidural flow without vascular or intrathecal uptake. At this point, 1cc of 1% lidocaine solution combined with 3cc or 20mg of dexamethasone and 6mg of betamethasone was injected without incident. The patient tolerated the procedure well without signs or symptoms of complications prior to transfer to the recovery area continued monitoring without incident. The patient was then transferred to the recovery area where they were observed for an appropriate period of time after the injection. The patient reported a VAS score of 6 prior to the procedure and a post- procedure VAS of 0. POST OP INSTRUCTIONS The patient was provided a Pain Log to continue to record their response to the target-specific procedure prior to follow-up visit with their referring physician. Additionally, specific post-injection care instructions and a contact number to our office were provided if concerns arise regarding possible complications associated with the procedure are suspected.
== END 2023-02-22 16:35 | disposition home or self-care (01) ==
LOC: RAD 14:48
PROVIDERS: Family Provider Internal Medicine; PCP Internal Medicine; Referring Provider Physical Medicine & Rehabilitation; Visit Provider Physical Medicine & Rehabilitation
DX: M51.16 Intervertebral disc disorders with radiculopathy, lumbar region (principal); M48.061 Spinal stenosis, lumbar region without neurogenic claudication
CPT/HCPCS: 62323; 99152; J0702; J1100; J2250; J3490

== ENCOUNTER 2023-06-02 09:44 | Outpatient (CLI) | payer MEDICARE, SELFPAY ==
[2023-01-24 15:53] VITALS: BMI 26.1
[2023-06-02] VITALS (8 sets, daily range): BP systolic 139–175; BP diastolic 55–86; PULSE 62–70; RESP 16–22; TEMP 36.4; O2SAT 97–99
--- NOTE | 2023-06-02 09:45 | DI.RAD.S_ITS ---
PROCEDURE: PAIN L INTERLAMINAR/CAUDAL INJ INDICATIONS: SPONDYLOSIS COMPARISON: [facility], XA, PAIN L INTERLAMINAR/CAUDAL INJ, 02/22/2023, 16:09. FINDINGS: Fluoroscopic spot filming was performed to verify placement of spinal needles overlying L5-S1 level(s), as labeled on the films. Appropriate location(s) of the needle tip(s) was confirmed by injection of iodinated contrast. IMPRESSION: L5-S1 needle placement localization. Dictated by: Love Nelson M.D. on 06/02/2023 at 14:47 Approved by: Love Nelson M.D. on 06/02/2023 at 14:47
[2023-06-02] MEDS: MIDAZOLAM 2 MG/2 ML VIAL IV (10:28)
[2023-06-02] MEDS: IOPAMIDOL 15 ML VIAL 3 ML INJ (10:33)
[2023-06-02] MEDS: BETAMETHASONE 30 MG/5 ML MDV 6 MG INJ (10:33)
[2023-06-02] MEDS: BUPIVACAINE 0.25% (PF) VIAL 2 ML INJ (10:33)
[2023-06-02] MEDS: DEXAMETHASONE 10 MG/ML VIAL 20 MG INJ (10:33)
--- NOTE | 2023-06-02 10:41 | P.PCN_ITS ---
Date/Time/Diagnoses Date of procedure: 06/02/23 Time of procedure: 10:42 Pre-procedure diagnosis: 1. HNP WITH RADICULAR FEATURES, 2. MULTILEVEL CENTRAL STENOSIS, Post-procedure diagnosis: same Procedure Notes Procedure: 1. FLUOROSCOPICALLY GUIDED CONTRAST CONTROLLED INTERLAMINAR EPIDURAL STEROID INJECTION - L5/S1 Indications: Roxy is referred by Dr. Vergara for treatment of Bilateral Foraminal Stenosis L>R LE symptoms. Physician: Marcin Whitaker Total Fluoroscopy time (seconds): 7 Total sedation minutes: 10 Complications: none Procedure in detail & Post-procedure care: FINDINGS Multilevel Central Spinal Stenosis with Nerve Root Compression DESCRIPTION OF PROCEDURE Fluoroscopically guided, contrast-controlled L5/S1 translaminar epidural steroid injection. Following review of allergy and review of potential side effects and complications, including, but not necessarily limited to, infection, allergic reaction, local tissue breakdown, temporary as well as permanent nerve injury, paralysis, stroke and possible , the patient indicated that the patient understood and agreed to proceed. An informed consent document was signed by the patient, witnessed by a nurse, and placed in the patient's chart. Additionally, other treatment options including modalities, medications, and physical therapy were reviewed with the patient. After review of previous anaesthesic history and IV conscious sedation the patient was deemed safe to proceed with today?s procedure with IV conscious sedation as ASA class II designation. Safety time-out was performed to confirm p atient ID, procedure to be performed and site of procedure. IV sedation was accomplished with a combination of 2mg of Versed administered by the RN after DO order, titrated to patient comfort during the course of the procedure while the patient remained responsive to all verbal commands. In the prone position, following sterile prep and drape of the lumbar region, the L5/S1 translaminar space was identified fluoroscopically. The skin was anesthetized via a 25-gauge, 1.5-inch needle with 1% lidocaine solution. At this point, a 22-gauge short bevel spinal needle was atraumatically introduced and advanced under fluoroscopic guidance into the region of the L5/S1 translaminar space. Depth was confirmed on lateral view. Radiological data, including multiple fluoroscopic views of the lumbar spine, reveal a spinal needle at the L5/S1 translaminar space. Lateral views then show placement of the needle in the epidural space. Subsequent views show contrast material flowing superiorly and inferiorly in the epidural space. No vascular or intrathecal uptake is observed. At this point, using loss of resistance technique with saline and air, the epidural space was entered. This was confirmed following negative aspiration with injection of approximately 1.5cc of Isovue 200, showing excellent epidural flow without vascular or intrathecal uptake. At this point, 1 cc of 1% lidocaine solution combined with 3cc or 20mg of dexamethasone and 6mg of betamethasone was injected without incident. The patent tolerated the procedure without signs of symptoms of complications prior to transfer to the recovery area for further monitoring. The patient was then transferred to the recovery area where they were observed for an appropriate period of time after the injection. The patient reported a VAS score of 6 prior to the procedure and a post-procedure VAS of 0. POST OP INSTRUCTIONS The patient was provided a Pain Log to continue to record their response to the target-specific procedure prior to follow-up visit with their referring physician. Additionally, specific post-injection care instructions and a contact number to our office were provided if concerns arise regarding possible complications associated with the procedure are suspected.
== END 2023-06-02 11:00 | disposition home or self-care (01) ==
LOC: RAD 09:44
PROVIDERS: Family Provider Internal Medicine; PCP Internal Medicine; Referring Provider Physical Medicine & Rehabilitation; Visit Provider Physical Medicine & Rehabilitation
DX: M51.17 Intervertebral disc disorders with radiculopathy, lumbosacral region (principal); M48.07 Spinal stenosis, lumbosacral region
CPT/HCPCS: 62323; 99152; J0702; J1100; J2250; J3490